=== PATIENT | female | born 2000 | race Caucasian/White ===

== ENCOUNTER 2025-05-02 11:20 | Outpatient (AMB) | payer OTHER, SELFPAY ==
--- NOTE | 2025-05-02 11:20 | MHC.OFFVIS ---
Vital Signs 05/02/25 11:27 BP 130/88 Blood Pressure Location Lt brachial Position Sitting Respiration 16 Pulse 98 Pulse Source Pulse Oximeter Pulse Oximetry (%) 98 Oxygen Delivery Method Room Air Intake Visit Reasons: Migraine Allergies No Known Allergies Allergy (Verified 04/28/25 09:12) HPI Comments Details: Morelia is a 24-year-old female patient with a past medical history of anxiety, depression, insomnia who is here today for headaches/migraine evaluation. She was previously followed at [facility] last seen in October of 2023 by Jodi DAVE. According to [facility] documentation, she was having frequent headaches up to 2-3 times per week many of which were accompanied by migrainous features including photophobia, phonophobia, nausea, and rarely vomiting. With more severe headaches could have some dizziness. It is noted that in the past she has tried amitriptyline without benefit and topiramate without. At the time of her last visit with [facility] neurology, she was continued on sumatriptan 50 mg as needed for acute therapy and recommended is trial of indomethacin. She was also recommended a retrial of topiramate with goal dosing of 50 mg twice daily. Referral notes for today's appointment mentioned that she has been having some ?fainting episodes that she like to discuss. Morelia tells me today that her migraines began in 3rd grade. She had an MRI completed at that time. She had been on amitriptyline as a child and it started to wear off at later in life. She has also used sumatriptan with some benefit but it causes a sensatino of anxiety. More recently she has been having more frequent and longer lasting migraines. She is currently experiencing migraines about 5 days per week lasting the while day. Her pain is generally back of neck radiating to top of head on both side. She has dizziness, light sensitivity, nausea, and fatigue. Occasionally she can have vomiting. Her pain is like a punching pain and can be a stabbing sensation. She has no vision changes before her headacehs but has some spots in her vision during the migraines. She has more recently been experiencing some nausea, diaphoresis, and tinnitus leading up to a brief loc. This often happens during a very bad episode but will happen before the onset of the actual headache. She denies a unilateral/focal weakness but often will feel weak all over. Headache characteristics: Time of onset:3rd grade Location:back of neck anf temporal Radiation:Radiating to the frontal areas Positional component:No Character:Punching or stabbing Severity:Can cause syncope Duration:Nearly a full day Frequency:5 days per week Acute aggravating factors:Lights and stress Acute relieving factors:Rest and ibuprofen Associated symptoms:Light sensitivity, sound sensitivity, dizziness, and loc episodes Aura:LOC episodes can sometimes preceed a migraine Headache triggers:Unknown Relation to menses: Using condoms for prevention. Not clearly following a menstrual pattern. Other related background information: Sleep:Can be scattered with frequent nightly awakenings. 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 Does note some clenching History of head injury: Concussion at age 10. No LOC Family planning considerations: Does have plans to get in about 1 year. Past medication trials: Amitriptyline- No longer effective Propranolol- Caused dizziness Topiramate- Tried in the past bit stopped Emgality- Helped but has severe needle anxiety Prior workup: MRI of the cervical spine without contrast 11/20/2022: The cervical spinal cord is normal in caliber and signal. No focal disc herniation. No central canal or foraminal stenosis. [facility] Medical History (Updated 05/02/25 @ 12:18 by Lakeshia Wilcox CNP) Somnolence RLS (restless legs syndrome) Migraine Review of Systems Const All systems reviewed & are unremarkable except as noted in HPI and below Physical Exam Vital Signs: Last Vital Signs Pulse 98 05/02/25 11:27 Resp 16 05/02/25 11:27 BP 130/88 05/02/25 11:27 Pulse Ox 98 05/02/25 11:27 Oxygen Delivery Method Room Air 05/02/25 11:27 Const General: cooperative, healthy appearing, comfortable and no acute distress Nutritional Appearance: well nourished Orientation/consciousness: patient oriented x3 Limitations: no limitations HEENT Head: Yes normal to inspection and Yes normocephalic Eyes General: appearance normal, both eyes and all related structures Visual Aquino: normal visual aquino by confrontation Alignment and Position: alignment normal Periorbital: periorbital findings normal Direct Ophthalmoscopy: normal light reflex, no papilledema and fundi normal bilaterally Neck Neck: Yes normal visual inspection and Yes full ROM General: Yes no CVA tenderness Back/Spine/Pelvis Back: no CVA tenderness Cervical Spine: normal cervical lordosis Thoracic/Lumbar Spine: thoracic and lumbar spine normal to inspection Neuro General: patient oriented x3 Cranial nerves: Yes CN's II-XII intact bilaterally Cognition (Neuro): normal cognition Gait exam (Neuro): Normal gait present Motor exam (neuro): 5/5 motor strength present throughout and no tremor noted Pupils: Normal pupillary reactivity/response: bilateral Psych Appearance: grossly normal Mental Status: mental status grossly normal Speech and movement: Normal speech and movement present and Clear speech present Affect: normal affect Attitude: cooperative Thought process: Normal thought process present Thought content: Normal thought content present Insight: Good insight present (Psych) Judgement: Good judgement present (Psych) Assessment & Plan Assessment & Plan (1) Worsening headaches: Code(s): R51.9 - Headache, unspecified Category: Medical (2) Loss of consciousness: Code(s): R40.20 - Unspecified coma Category: Medical (3) Chronic migraine without aura without status migrainosus, not intractable: Code(s): G43.709 - Chronic migraine without aura, not intractable, without status migrainosus Category: Medical Plan Morelia is a 24-year-old female patient with a past medical history of anxiety, depression, insomnia who is here today for headaches/migraine evaluation. Migraines have for many years with negative workups in the past. For the course of the last year however she has had some syncope during her migraines which start with a sensation of lightheadedness and diaphoresis dose after which she will lose consciousness for a brief few sec. She has not experienced any seizure-like activity but has not had any EEG testing in the past. I think given the change in her migraines it would be reasonable to both obtain an EEG and an MRI of the brain. We discussed some options for migraine prevention today. She would like to 1st try some nutraceuticals options and if this is not adequate, we discussed next steps which would likely include a GEPANT given her prior medication trials and needle anxiety. We specifically discussed Qulipta as one of these options. -MRI brain wo contrast -EEG -trial of magnesium and riboflaven -sumatriptan dc -trial of naratriptan for acute therapy -next steps include a trial of Qulipta 60 mg daily for migraine prevention Orders: Orders EEG Routine Today R40.20 - Unspecified coma, R51.9 - Headache, unspecified MR head/brain wo con Today R40.20 - Unspecified coma, R51.9 - Headache, unspecified Coding Level of Care Code New Pt Level 4 (33481) Diagnoses Worsening headaches R51.9 Loss of consciousness R40.20 Chronic migraine without aura without status migrainosus, not intractable G43.460
[2025-05-02 11:27] VITALS: BP 130/88; PULSE 98; RESP 16; O2SAT 98
--- OUTSIDE RECORDS SUMMARY | 2025-05-02 13:47 | XMS_ITS | Clinical Summary ---
Author Organization [facility] Address [address] [place] [address] Phone Care Team Providers Care Gear Lapper Name Role Phone Unavailable Primary Care Provider Unavailabl e Allergies No known active allergies Medications MONO-LINYAH 0.25-35 MG-MCG per tabletIndications: Encounter for surveillance of contraceptives, unspecified contraceptive take 1 tablet by mouth once daily 84 tablet 4 8 Active norgestimate-ethin yl estradiol (SPRINTEC 28) 0.25-35 MG-MCG per tablet Take by mouth. 6 Active Immunizations Immunization Administration Dates Next Due DTaP 12/28/2003, 0,06/07/1999, 999,01/25/1999 HPV, Quadrivalent 12/25/2010,08/16/2010,05/01/20 10 Hep A, ped/adol 09/15/2017 Hep B, ped/adol 08/29/1999,01/25/1999,1998 Hib (PRP-T) 02/26/2000, 9,04/03/1999, 999 IPV 12/28/2003, 0,04/03/1999, 999 Influenza 06/29/2007,05/28/2007 Influenza, injectable, quadrivalent 06/22/2014,1 ,05/01/2010 MMR 11/28/2002,11/26/1999 Meningococcal Conj (Menactra) MCV4P 07/24/2015,1 PPD Test 03/11/2018 Pneumococcal Conjugate 04/15/2000,02/26/2000 Tdap 05/01/2010 Varicella 02/09/2008,11/26/1999 Family History Relation Name Status Comments Father Alive hyperlipidemia diagnosed with Hypercholesteremia Maternal Grandfather cancer, hyperthyroid diagnosed with MALIGNANT NEOPLASM NOS Maternal Grandmother grand m al seizure/ cardiac arrest diagnosed with HEART DISEASE NOS Mother 05/2016, a lcoholic diagnosed with Hypertension Paternal Grandmother Alive hyperte nsion, BACK PROBLEMS diagnosed with Hypertension Social History Tobacco Use Types Packs/Day Years Used Date Smoking Tobacco: Never Assessed Comments Unknown Sex and Gender Information Value Date Recorded Sex Assigned at Not on file Legal Sex Female 6:08 PM EDT Gender Identity Not on file Sexual Orientation Not on file Last Filed Vital Signs Vital Sign Reading Time Taken Comments Blood Pressure 102/64 04/09/2018 9:59 AM EDT Pulse - - Temperature 36.6 C (97.9 F) 04/09/2018 9:59 AM EDT Respiratory Rate - - Oxygen Saturation - - Inhaled Oxygen Concentration - - Weight 55.9 kg (123 lb 4 oz) 04/09/2018 9:59 AM EDT Height 166.4 cm (5' 5.5 ) 04/09/2018 9:59 AM EDT Body Mass Index 20.2 04/09/2018 9:59 AM EDT Plan of Treatment Health Maintenance Due Date Last Done Comments Hepatitis A Vaccines (2 of 2 - 2-dose series) 03/15/2018 09/15/2017 DTaP,Tdap,and Td Vaccines (7 - Td or Tdap) 05/01/2020 05/01/2010, 12/28/2003, 02/26/2000, Additional history exists Influenza Vaccines (#1) 2025 06/22/20 14, 05/10/2012, 05/01/2010, Additional history exists COVID-19 Vaccine ( season) 2025 Hepatitis B Vaccines Completed 08/29/1999, 01/25/1999, 1998 HIB Vaccines Completed 02/26/2000, 05/20, 04/03/1999, Additional history exists Pneumococcal Vaccine Aged Out 04/15/2000, 02/26/20 00 No longer eligible based on patient's age to complete this topic MMR Vaccines Completed 11/28/2002, 11/26/1999 IPV Vaccines Completed 12/28/2003, 050 03/2000, 04/03/1999, Additional history exists Varicella Vaccines Completed 02/09/2008, 11/26/1999 HPV Vaccines Completed 12/25/2010, 07/21, 05/01/2010 Meningococcal Vaccine Completed 07/24/2015, 010 Men B Vaccine Aged Out No longer elig ible based on patient's age to complete this topic Procedures * Due to [place] Modulus law, this organization might not be sharing sensitive test results. Procedure Name Priority Date/Time Associated Diagnosis Comments CHLAMYDIA AND GONORRHEA, AMPLIFIED Routine 10/28/2017 12:00 AM EDT from Last 3 Months or Most Recently Relevant to Health Maintenance Results * Due to [place] Mod[employer] law, this organization might not be sharing sensitive test results. * Chlamydia and Gonorrhoea, Amplified (10/28/2017 12:00 AM EDT) URINE GC AMP PROBE NEGATIVE (NEG) C ONVERTED LABS Comment: No Neisseria Gonorrhoeae RNA detected in this patient's sample (REFERENCE RANGE/NORMAL VALUE: NOT DETECTED) NOTE: This test uses machinist instructor-mediated amplification method to detect rRNA from N.Gonorrhoeae. A negative result does not preclude infection. In the case of a negative urine result, testing of an endocervical(female) or urethral (male) specimen is recommended if there is high clinical suspicion of infection. Due to very high sensitivity of Nucleic Acid Amplification Test, false positive results may occur. Therefore, specimen handling is extremely important. In patients in whom the disease is unlikely, additional sample for testing should be considered after an initial positive result. The performance characteristics of this test have not been evaluated in children. The Aptima Combo2 assay is not intended for the evaluation of suspected sexual abuse or for other medico-legal indications. The ordering provider should assess if the patient had consensual sex without risk of sexual abuse. Consult the [facility] if needed. Contact phone number . Therapeutic failure or success cannot be determined with the Aptima Combo2 assay since nucleic acid may persist following appropriate antimicrobial therapy. The Centers for Disease Control and Prevention (CDC) recommends confirmatory retesting using culture or a different nucleic acid amplification test when positive results occur, if indicated. URINE CHLAMYDIA AMP PROBE NEGATIVE (NEG) CONVERTED LABS Comment: No Chlamydia Trachomatis RNA detected in this patient's sample (REFERENCE RANGE/NORMAL VALUE: NOT DETECTED) Note: This test uses machinist instructor- mediated amplification method to detect rRNA from C. Trachomatis 10/28/2017 Narrative CONVERTED LABS - 10/28/2017 12:00 AM EDT Screening Negative Joie Dent 10/27/2017 04:32:04 PM > sent to [facility] Erendira Skaggs 10/27/2017 04:33:11 PM > see tel encounter RayAngela J 10/28/2017 02:32:33 PM > Erendira Skaggs 10/29/2017 07:40:12 AM > Erendira Skaggs MD LAB MICROBIOLOGY - GENERAL ORDER KRISTIAN Final Result CONVERTED LABS from Last 3 Months or Most Recently Relevant to Health Maintenance Insurance [facility]
--- OUTSIDE RECORDS SUMMARY | 2025-05-02 13:47 | XMS_ITS | Encounter Summary ---
Author Organization [facility] Address [address] [place] [address] Phone Care Team Providers Care Crab Butcher Name Role Phone Aisha Hartman MD Primary Care Provider [phone] Encounter Details Date Type Department Care Team (Late st Contact Info) Description 12/06/2017 [facility]version [facility]counter [facility] [address] [address] Social History Tobacco Use Types Packs/Day Years Used Date Smoking Tobacco: Never Assessed Comments Unknown Sex and Gender Information Value Date Recorded Sex Assigned at Not on file Legal Sex Female 6:08 PM EDT Gender Identity Not on file Sexual Orientation Not on file documented as of this encounter Plan of Treatment Not on file documented as of this encounter Visit Diagnoses Not on filedocumented in this encounter Care Teams Crab Butcher Relationship Specialty Start Date End Date Aisha Hartamn MD [address] [place] [address] PCP - General 11/25/17 04/14/24 documented as of this encounter
--- OUTSIDE RECORDS SUMMARY | 2025-05-02 13:47 | XMS_ITS | Clinical Summary ---
Author Organization [facility] Address [address] [place] [address] Care Team Providers Care Biomedical Equipment Support Specialist Name Role Phone Perez Lema DO Primary Care Provider [phone] Medical History Medical History Date Comments Fainting DX:Fainting IBS (irritable bowel syndrome) D X:IBS (irritable bowel syndrome) Loss of consciousness (CMS/H CC V24, CMS/HCC V28) DX:Loss of consciousness (HC C) Headache DX:Headache Social History Tobacco Use Types Packs/Day Years Used Date Smoking Tobacco: Never Smokeless Tobacco: Former Alcohol Use Standard Drinks/Week Comments Yes 0 (1 standard drink = 0.6 oz pur e alcohol) Comments Unknown Sex and Gender Information Value Date Recorded Sex Assigned at Not on file Legal Sex Female 11:01 AM EST Gender Identity Not on file Sexual Orientation Not on file Obstetrics History Last Filed Vital Signs Vital Sign Reading Time Taken Comments Blood Pressure 120/80 07/28/2023 3:14 PM EST Sitting R Arm Pulse 70 07/28/2023 3:14 PM EST Temperature - - Respiratory Rate - - Oxygen Saturation - - Inhaled Oxygen Concentration - - Weight 54.7 kg (120 lb 8 oz) 07/28/2023 3:14 PM EST Height 170.2 cm (5' 7 ) 07/28/2023 3:14 PM EST Body Mass Index 18.87 07/28/2023 3:14 PM EST Plan of Treatment Health Maintenance Due Date Last Done Comments HPV Vaccines (1 - 3-dose series) 2013 DTaP,Tdap,and Td Vaccines (1 - Tdap) 2017 Hepatitis B Vaccines (1 of 3 - 19+ 3-dose series) 2017 Cervical Cancer Screening: P ap Smear 11/25/2019 HIV Screening 06/17/2022 Hepatitis C Screening 06/17/2022 Social Influencers of Health Screening 06/17/2022 Depression Screening 07/20/2024 COVID-19 Vaccine (1 - 2023-2 5 season) 2025 Influenza Vaccine (#1) 2025 RSV Immunization Adult Patie nts (1 - 1-dose 75+ series) 2073 HIB Vaccines Aged Out No longer eligi ble based on patient's age to complete this topic Hepatitis A Vaccines Aged Out No long er eligible based on patient's age to complete this topic IPV Vaccines Aged Out No longer eligi ble based on patient's age to complete this topic MMR Vaccines Aged Out No longer eligi ble based on patient's age to complete this topic Meningococcal ACWY Vaccine Aged Out N o longer eligible based on patient's age to complete this topic Meningococcal B Vaccine Aged Out No l onger eligible based on patient's age to complete this topic Pneumococcal Vaccine: Pediat rics (0 to 5 Years) and At-Risk Patients (6 to 49 Years) Aged Out No longer eligible b ased on patient's age to complete this topic RSV Immunization Patients Un merle 20 months Aged Out No longer eligible b ased on patient's age to complete this topic Varicella Vaccines Aged Out No longer eligible based on patient's age to complete this topic Care Teams Biomedical Equipment Support Specialist Relationship Specialty Start Date End Date Perez Lema DO PCP - General Internal Medicine 06/18/21
== END 2025-05-02 12:24 | disposition home or self-care (01) ==
LOC: HO.HSM 11:20
PROVIDERS: PCP Internal Medicine; Visit Provider Nurse Practitioner
DX: R51.9 Headache, unspecified (principal); R40.20 Unspecified coma; G43.709 Chronic migraine without aura, not intractable, without status migrainosus
CPT/HCPCS: 99204

== ENCOUNTER 2025-05-22 10:26 | Outpatient (REF) | payer OTHER, SELFPAY ==
--- NOTE | 2025-05-22 12:09 | EEG_ITS ---
Reason for Exam: Loss of consciousness History: anxiety, depression, insomnia, migraine, Patient report episodes of nausea, diaphoresis, and tinnitus leading up to a brief loss of consciousness. Last episode was a month ago. Last meal was this morning at 8:30 am. Medication: no list available Technical description Photic stimulation: completed Hyperventilation:?performed - good effort Behavioral state: pleasant State of Consciousness: awake and sleep Skull defect: none Sedation: none Handedness: right Duration of study:?33 min 27 sec Description: This is a 16 channel EEG with an EKG lead. Patient is reported awake and asleep during the tracing. Background EEG rhythm during wakefulness is about 10 hertz 5-100 microvolt posteriorly and lower amplitude fast anteriorly. Intermittently, sometime right and sometime left hemispheric sharply controlled theta range discharges, at times with high amplitude, were noted. No definite spike was seen. Photic stimulation did not produce any significant driving. Hyperventilation was unremarkable. Patient transitioned into light sleep. Cardiac lead did not reveal any significant abnormality. Impression: Abnormal EEG suggestive of bilateral probably temporal in origin abnormalities that suggested tendency for seizure disorder. For better definition, 48 hour ambulatory EEG is recommended. MTDD
--- OUTSIDE RECORDS SUMMARY | 2025-05-22 12:31 | XMS_ITS | Clinical Summary ---
Author Organization [facility] Address [address] [place] [address] Care Team Providers Care Vascular Radiologist Name Role Phone Perez Lema DO Primary Care Provider Medical History Medical History Date Comments Fainting [...] age to complete this topic Care Teams Vascular Radiologist Relationship Specialty Start Date End Date Perez Lema DO PCP - General Internal Medicine 06/18/21
--- OUTSIDE RECORDS SUMMARY | 2025-05-22 12:31 | XMS_ITS | Encounter Summary ---
Author Organization [facility] Address [address] [place] [address] Phone Care Team Providers Care Advanced Practice Nurse Psychotherapist Name Role Phone Aisha Hartman MD Primary Care Provider [phone] Encounter Details Date Type Department Care Team (Late st Contact Info) Description 12/06/2017 Conversion [facility]counter [facility] [address] [address] Social History Tobacco Use Types Packs/Day Years [...] on filedocumented in this encounter Care Teams Advanced Practice Nurse Psychotherapist Relationship Specialty Start Date End Date Aisha Hartman MD [address] [place] [address] PCP - General 11/25/17 04/14/24 documented as of this encounter
--- OUTSIDE RECORDS SUMMARY | 2025-05-22 12:31 | XMS_ITS | Data Portability ---
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 Plan of Treatment Reminders Order Date Submit Date Provider Last Modified By Organization Details Last Modified Time Details Appointments ANNUAL EXAM 2025 03:20P M Sherly Lind MD Not available Not available Not available Lab beta-HCG, qualitati ve, serum or plasma 2024 025 MIL[facility]ROS [facility], [address] [place] [address] [address], [place], [address], 03/19/2025 08:06:32 prolactin , serum 2024 025 MILAGROS [facility], [address] [place] [address] [address], [place], [address], 03/19/2025 08:06:31 FSH (follicle -stimulat ing hormone), serum 2024 025 MILAGROS [facility], [address] [place] [address] [address], [place], [address], 03/19/2025 08:06:31 testoster one, free + total, serum 2024 025 [email or web address] [facility], [address] [place] [address] [address], [place], [address], 03/21/2025 07:14:29 TSH + free T4, serum 2024 025 MILAGROS [facility], [address], [place], [address], 03/19/2025 08:06:30 estradiol , serum 2024 025 [facility], [address], [place], [address], 03/19/2025 08:06:31 test, urine 2024 025 [email or web address] 1 In-Office Order, Internal Use Only DO Not Attach Compendium DO Not Attach Compendium, Do Not Delete/merge, [id number] 03/13/2025 14:53:59 test, urine 2024 025 [email or web address] 1 In-Office Order, Internal Use Only DO Not Attach Compendium DO Not Attach Compendium, Do Not Delete/merge, [id number] 11/14/2024 15:26:28 beta-HCG, qualitati ve, serum or plasma 2024 025 [facility], [address] [facility], [place], [address], 02/06/2025 08:45:33 TSH + free T4, serum 2024 025 [facility], [address], [place], [address], 02/06/2025 08:45:33 cytology report, thin prep, smear or scraping, cervical or vaginal 2024 025 [facility] (Centralized Electronic Ordering - All Locations), Patient Can Go To The Location Of Their Choice, [address] 10/15/2024 00:16:23 pap, LB 2023 024 [facility] ([facility] - [facility]ations), Patient Can Go To The Location Of Their Choice, [id number] 08/21/2023 11:22:35 Referral None recorded. Procedures None recorded. Surgeries None recorded. Imaging None recorded. Medication Orders norethind dee (contrace ptive) 0.35 mg tablet 2024 025 [facility]/Pharmacy #[id number], [address] [place], [address], 03/13/2025 14:34:32 norgestim ate 0.25 mg-ethiny l estradiol 0.035 mg tablet 2024 025 [facility]/Pharmacy #2025, [address] [place], [address], 03/13/2025 14:34:27 Patient TargetsNo targets recorded. Patient Instructions Encounter Date Encounter Id Patient Instructions Last Modified By Organization Details Last Modified Time 08/18/2023 [id number] abnormal Pap shakira t: care instructions savita Not available 08/18/2023 15:03:24 She is here for repeat pap after pap with ASCUS without HR HPV. Pap taken. If ASCUS then colpo, if negative then return for next annual as scheduled. savita Not available 08/18/2023 15:03:52 10/13/2024 [id number] learning about healthy weight savita Not available 10/13/2024 15:37:45 She is here for annual, doing well on the OCP. She just adopted a red Labrador dog! Note from 2022: She is her for annual, doing well on OCP. Believes she may have a vaginal yeast infection. She began having vaginal pruritus 2 weeks ago, and in the past few days it has worsened. The last time she was treated for vaginal yeast was several months ago. She appears to be doing well. Monthly self breast exam was taught, and stressed, and is advised to call if she discovers any new mass in the breast. We reviewed the interaction of the OCP with antibiotics. We discussed the need to use a condom during antibiotic use and also for a minimum of three weeks following the use of antibiotics. We discused interactions with some herbal and OTC meds, such as [facility] Santhosh's Possible side effects, and the stated risk of one in 10,000 to develop a blood clot/ DVT/PE were also discussed. Safe sex was stressed. All questions answered, rx to be called in to pharmacy. Not available 10/13/2024 15:38:20 11/14/2024 [id number] She is here for abnormal uterine bleeding. She has her normal menses beginning 10/18/24, at the correct time. She has not missed any pills. Then she had a 7 day episode of bleeding beginning on the that was like a menses, stopped, then just restarted again today which would have been the proper timing on her pill pack. Se was taking a medication that she stopped on 10/14/24, ariprazole. All menses prior to this were normal. We discussed that stopping the medication may have been the cause, it should reset if so. Will check serum HCG and thyroid, the urine hcg today is negative. If labs are normal range then await the next month of bleeding. If abnormal bleeding recurs then call us and we will order a pelvic sonogram. All questions answered. Face to face discussion, chart review and coordination of care: 25 minutes Not available 11/14/2024 15:23:47 12/08/2024 [id number] She started on lamictal in July and is now having some irregular vaginal bleeding on her combination OCP. Her psychiatrist advised her to take the pill at a different time than the OCP but she is concerned it may be less effective for control because her pharmacist told her that. We discussed the posible interactions nad recommended she switch to a progestin-only form of control. We discussed all the options for this and she elects to start the progestin-only pill with her next menses. We discussed the first day start process for the OCP, that the pill will not be effective for the first month of use, and the interaction with antibiotics. We discussed the need to use a condom during antibiotic use and also for a minimum of three weeks following the use of antibiotics. We discussed interactions with some herbal and OTC meds, such as Saint Santhosh's Wort. Possible side effects, and the stated risk of one in 10,000 to develop a blood clot/ DVT/PE were also discussed. All questions answered, rx to be called in to pharmacy. She tried to give us a urine specimen but could not even after drinking a bottle of water. She has blood work already ordered to check hormones including , she will go for that. Face to face discussion, chart review and coordination of care: 25 minutes Not available 12/08/2024 14:25:14 03/13/2025 [id number] secondary amenorrhea: care instructions Not available 03/13/2025 14:43:33 She is here for a 3 month history of amenorrhea. She has a 30 pound unintended weight loss since starting adderall in 09/13, she wonders if this is related. She stopped the OCP in 01/11, had been on progestin only pill, as she is considering fertility. She talks to her psychiatrist in 3 days from now about this. Urine hcg negative. Check serum hcg, prolactin, thyroid, estradiol, fsh, testosterone. she is advised that rapid weight loss can cause temporary amenorrhea as well. All questions answered. Call for lab results. Should change any meds that are contraindicated in before getting . Face to face discussion, chart review and coordination of care: 25 minutes [email or web address] Not available 03/14/2025 07:28:40 Reason for Referral None Reported. 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 Satis facto ry for evalu ation . Endoc ervic al/tr ansfo rmati on zone prese nt. Clini enrcio Histo ry: Date of Last Menst rual Perio d: not avail able Menst rual Histo ry: not avail able Contr acept jessica Histo ry: not avail able Ancil sonja Testi ng: HPV (ASCU S) Case image d by the ThinP rep Imagi ng Syste m with юлия lopez michael gallo or paul jules Perfo rmed at [facility] ate Refer ence [facility] Cyt[facility], [address] [place] Clini enrico Histo ry (othe r): R87.6 10, DIAGN OSTIC FOLLO W UP, 05/04 ASCUS HPV Phone #: [phone], On-Ca ll Patho logis t: [id number] Not Available [facility] (Centralized Electronic Ordering - All Locations) Patient Can Go To The Location Of Their Choice, [address] 08/21/2023 11:22:34 10/14/19 25 10/14/2024 IGP, CTNG, RFX APTIM A HPV ASCU diagnosis: João LOPEZ FOR INTRA EPITH ELIAL MITALI Valdez OR DARYA ALCARAZ . Not Available [facility] ([facility]) [address] [place], [address], 10/15/2024 00:16:23 10/14/19 25 10/14/2024 IGP, CTNG, RFX APTIM A HPV ASCU specimen adequacy: João corbin Satis facto ry for evalu ation . Endoc ervic al and/o r squam ous metap lasti c cells (endo cervi enrico compo nent) are prese nt. Not Available [facility] ([facility]) [address] [place], [address], 10/15/2024 00:16:23 10/14/19 25 10/14/2024 IGP, CTNG, RFX APTIM A HPV ASCU clinician provided ICD10: João corbin Z01.4 19 Not Available [facility] ([facility]) [address] [place], [address], 10/15/2024 00:16:23 10/14/19 25 10/14/2024 IGP, CTNG, RFX APTIM A HPV ASCU performed by: João Gloria , Cytot cristian corbin (ASCP ) Not Available [facility] ([facility]) [address] [place], [address], 10/15/2024 00:16:23 10/14/1910/14/2024 IGP, CTNG, RFX APTIM A HPV ASCU . . Not Available [facility] ([facility]) [address] [facility], [place], [address], 10/15/2024 00:16:23 10/14/19 25 10/14/2024 IGP, CTNG, RFX APTIM A HPV ASCU note: Commen t The Pap smear is a scree peña test desig ankush to aid in the detec tion of heri ligna nt and malig nant condi tions of the uteri ne cervi x. It is not a diagn ostic proce dure and shoul d not be used as the sole means of detec ting cervi enrico cance r. Both false -posi tive and false -nega tive repor ts do occur . Not Available [facility] ([facility]) [address] [facility], [place], [address], 10/15/2024 00:16:23 10/14/1910/14/2024 IGP, CTNG, RFX APTIM A HPV ASCU test methodology: Commen t This liqui d based ThinP rep(R ) pap test was scree ankush with the use of an image guide d syste m. Not Available [facility] ([facility]) [address] [facility], [place], [address], 10/15/2024 00:16:23 10/14/1910/14/2024 IGP, CTNG, RFX APTIM A HPV ASCU . Commen t The HPV DNA refle x crite vaughn were not met with this speci men resul t there fore, no HPV testi ng was perfo rmed. Not Available [facility] ([facility]) [address] [place], [address], 10/15/2024 00:16:23 03/27/20 25 10/14/2024 IGP, CTNG, RFX APTIM A HPV ASCU chlamydia, nuc. acid amp Negati ve negati ve Not Available [facility] ([facility]) [address] [place], [address], 10/15/2024 00:16:23 10/14/19 25 10/14/2024 IGP, CTNG, RFX APTIM A HPV ASCU gonococcus, nuc. acid amp Negati ve negati ve Not Available [facility] ([facility]) [address] [facility], [place], [address], 10/15/2024 00:16:23 11/15/19 25 11/14/2024 pregn js test, urine HCG negati ve Not Available In-Office Order Internal Use Only DO Not Attach Compendium DO Not Attach Compendium, Do Not Delete/merge, [id number] 11/14/2024 14:55:57 03/13/2003/13/2025 pregn js test, urine HCG negati ve Not Available In-Office Order Internal Use Only DO Not Attach Compendium DO Not Attach Compendium, Do Not Delete/merge, [id number] 03/13/2025 14:44:15 03/18/2003/19/2025 TSH+F REE T4 TSH 2.550 uIU/m L 0.450- 4.500 normal Not Available [facility] ([facility]) [address] [facility], [place], [address], 03/19/2025 08:06:30 03/18/2003/19/2025 TSH+F REE T4 T4,free(dire ct) 1.12 NG/dL 0.82-1 .77 normal Not Available [facility] ([facility]) [address] [place], [address], 03/19/2025 08:06:30 03/18/20 25 03/19/2025 FSH FSH 9.2 mIU/m L Adult Femal e Range Folli cular phase 3.5 - 12.5 Ovula tion phase 4.7 - 21.5 Lutea l phase 1.7 - 7.7 Postm enopa usal 25.8 - 134.8 Not Available [facility] ([facility]) [address] [place], [address], 03/19/2025 08:06:31 03/18/20 25 03/19/2025 PROLA CTIN prolactin 9.3 NG/mL 4.8-33 .4 normal Not Available [facility] ([facility]) [address] [place], [address], 03/19/2025 08:06:31 03/18/20 25 03/19/2025 ESTRA DIOL estradiol 57.6 pg/mL normal Adult Femal e Range Folli cular phase 12.5 - 166.0 Ovula tion phase 85.8 - 498.0 Lutea l phase 43.8 - 211.0 Postm enopa usal <6.0 - 54.7 Pregn js 1st trime ster 215.0 - >4300 .0 David ECLIA metho dolog y Not Available [facility] ([facility]) [address] [place], [address], 03/19/2025 08:06:31 03/18/20 25 03/19/2025 HCG QL W/REF MIKAELA TO HCG QN HCG,beta subunit,qual Negati ve mIU/m L negati ve <6 Not Available [facility] ([facility]) [address] [place], [address], 03/19/2025 08:06:32 03/18/20 25 03/21/2025 TESTO STERO NE, FREE+ TOTAL LC/MS free testosterone (direct) 0.4 pg/mL 0.0-4. 2 Not Available [facility] ([facility]) [address] [place], [address], 03/23/2025 16:06:24 03/18/20 25 03/23/2025 TESTO STERO NE, FREE+ TOTAL LC/MS testosterone , total, lc/MS 34.0 NG/dL 10.0-5 5.0 Not Available [facility] ([facility]) [address] [facility], [place], [address], 03/23/2025 16:06:24 Result Notes None recorded. Problems Name Problem SNOMED Code Status Onset Date Resolution Date Notes Provider Name and Address Organization Details Recorded Time Dyspareuni a [id number] Active 2017 Sherly Lind MD [address], [place], [address], [place] - [facility], 8 12:19:32 Lesion of vulva 971744472 Active 2017 Sherly Lind MD [address], [place], [address], [place] - [facility], 8 12:19:39 History of chlamydial infection 903786880 Active 201710/08/17 had positive chlamydia infection Sherly Lind MD [address], [place], [address], [place] - [facility], 8 12:20:02 Irritable bowel syndrome 19574060 Active 2021 [place] in [facility], 2 14:39:37 Syncope 416770072 Active 2022 [place] in [facility], 3 15:21:10 Problem Notes None recorded. Medical Equipment None Reported. Allergies No known drug allergies Medications Name Sig Start Date Stop Date Status Note LastModified by Organization Details LastModified Time glycopyrrol ate 1 mg tablet Take ONE TABLET BY MOUTH TWICE A DAY 05/04 completed Not Available Not Available Not Available fluoxetine 40 mg capsule TAKE 1 CAPSULE BY MOUTH DAILY WITH 20 MG FOR TOTAL 60 MG PER DAY 10/13 completed Not Available Not Available Not Available amoxicillin 500 mg capsule take 1 tablet by mouth three times a day for 7 days 08/05 completed Not Available Not Available Not Available buspirone 5 mg tablet TAKE 1 TABLET BY MOUTH TWICE A DAY DIRECTED 10/13 completed Not Available Not Available Not Available lamotrigine 150 mg tablet TAKE 1 TABLET BY MOUTH TWICE A DAY DIRECTED active Not Available Not Available No t Available terconazole 0.4 % vaginal cream INSERT 1 APPLICATO RFUL VAGINALLY EVERY DAY FOR 7 DAYS 10/13 completed Not Available Not Available Not Available norgestimat e 0.25 mg-ethinyl estradiol 0.035 mg tablet TAKE 1 TABLET BY MOUTH EVERY DAY 03/13 completed Not Available Not Available Not Available venlafaxine ER 37.5 mg capsule,ext ended release 24 hr 08/05 completed Not Available Not Available Not Available clonidine HCl 0.1 mg tablet TAKE 1 TABLET BY MOUTH AT BEDTIME 03/20 completed Not Available Not Available Not Available clindamycin HCl 300 mg capsule 08/05 completed Not Available Not Available Not Available trazodone 50 mg tablet TAKE 1/2 TABLET BY MOUTH AT BEDTIME 05/04 completed Not Available Not Available Not Available tizanidine 4 mg tablet TAKE 1 TABLET BY MOUTH DAILY AT BEDTIME,I NSTR:TAKE 10-12 HOURS BEFORE PLANNING TO WAKE UP. 05/04 completed Not Available Not Available Not Available fluconazole 150 mg tablet TAKE 1 TABLET BY MOUTH NOW. REPEAT IN 7 DAYS 03/20 completed Not Available Not Available Not Available valacyclovi r 1 gram tablet Take 1 tablet every 12 hours by oral route for 10 days. 08/05 completed Not Available Not Available Not Available fluconazole 200 mg tablet 04/25 completed Not Available Not Available Not Available ondansetron HCl 4 mg tablet TAKE 1 TABLET BY MOUTH EVERY 8 HOURS 05/04 completed Not Available Not Available Not Available clonidine HCl 0.3 mg tablet 08/05 completed Not Available Not Available Not Available sumatriptan 50 mg tablet PLEASE SEE ATTACHED FOR DETAILED DIRECTION S active Not Available Not Available No t Available topiramate 25 mg tablet 11/26 completed Not Available Not Available Not Available acetaminoph en 300 mg-codeine 30 mg tablet TK 1 TO 2 TS PO Q 6 TO 8 H 03/09 completed Not Available Not Available Not Available sulfamethox azole 800 mg-trimetho prim 160 mg tablet TK 1 T PO Q 12 H FOR 10 DAYS 07/16 completed Not Available Not Available Not Available omeprazole 40 mg capsule,del ayed release TAKE 1 CAPSULE BY MOUTH EVERY DAY active Not Available Not Available No t Available Preparation H (phenylephr ine,witch rossy) 0.25 %-50 % topical gel apply rectally four times a day for 7 days 11/26 completed Not Available Not Available Not Available bupropion HCl SR 100 mg tablet,12 hr sustained-r elease TK 1 T PO QD 01/29 completed Not Available Not Available Not Available amoxicillin 500 mg tablet TK 1 T PO Q 8 H UNTIL FINISHED 08/05 completed Not Available Not Available Not Available lamotrigine 25 mg tablet TAKE THREE TABLET TWICE DAILY DIRECTED active Not Available Not Available No t Available magnesium gluconate 12.5 mg magnesium (250 mg) tablet take 2 tablets (=500MG) by mouth once daily 11/26 completed Not Available Not Available Not Available cefadroxil 500 mg capsule 11/26 completed Not Available Not Available Not Available oxycodone-a cetaminophe n 5 mg-325 mg tablet take 1 tablet by mouth every 6 hours if needed for pain 08/05 completed Not Available Not Available Not Available bupropion HCl 100 mg tablet TAKE 1 TABLET BY MOUTH DAILY 03/20 completed Not Available Not Available Not Available doxycycline monohydrate 50 mg capsule Take ONE CAPSULE BY MOUTH TWICE A DAY 05/04 completed Not Available Not Available Not Available clonidine HCl 0.2 mg tablet 11/26 completed Not Available Not Available Not Available amitriptyli ne 25 mg tablet 08/05 completed Not Available Not Available Not Available lorazepam 0.5 mg tablet TAKE 1 TABLET BY MOUTH DAILY NEEDED FOR ANXIETY. MAY USE UP TO 10 TIMES PER MONTH active Not Available Not Available No t Available dextroamphe tamine-amph etamine ER 20 mg 24hr capsule,ext end release TAKE 1 CAPSULE EVERY DAY BY ORAL ROUTE IN THE MORNING FOR 30 DAYS, FOR ADHD. 12/08 completed Not Available Not Available Not Available amitriptyli ne 10 mg tablet TAKE 2 TABLETS BY MOUTH DAILY 05/04 completed Not Available Not Available Not Available phenazopyri dine 100 mg tablet TK 1 T PO TID FOR 3 DAYS PRN 07/16 completed Not Available Not Available Not Available doxycycline monohydrate 100 mg capsule TAKE 1 CAPSULE BY MOUTH EVERY DAY 05/04 completed Not Available Not Available Not Available paroxetine 20 mg tablet 08/05 completed Not Available Not Available Not Available trielizabeth macias acetonide 0.1 % topical ointment ARMIDA THIN LAYER EXT AA BID 04/25 completed Not Available Not Available Not Available buspirone 10 mg tablet TAKE 1 TABLET BY MOUTH THREE TIMES A DAY DIRECTED FOR 30 DAYS 10/13 completed Not Available Not Available Not Available fluoxetine 10 mg capsule TAKE 3 CAPSULES BY MOUTH EVERY DAY IN THE MORNING 05/04 completed Not Available Not Available Not Available betamethaso ne dipropionat e 0.05 % topical cream APPLY TO SKIN D TO BID PRN.USE 2 WEEKS ON THEN 1 WEEK OFF 07/16 completed Not Available Not Available Not Available omeprazole 20 mg capsule,del ayed release TAKE 1 CAPSULE BY MOUTH DAILY.. 03/20 completed Not Available Not Available Not Available dextroamphe tamine-amph etamine ER 10 mg 24hr capsule,ext end release TAKE 1 CAPSULE BY MOUTH EVERY DAY IN THE MORNING FOR 14 DAYS FOR ADHD active Not Available Not Available No t Available mirtazapine 15 mg tablet TK 1 T PO QHS 01/29 completed Not Available Not Available Not Available ibuprofen 600 mg tablet take 1 tablet by mouth every 6 to 8 hours if needed 08/05 completed Not Available Not Available Not Available polyethylen e glycol 3350 17 gram/dose oral powder take 17GM (DISSOLVE D IN WATER) by mouth once daily 01/29 completed Not Available Not Available Not Available levofloxaci n 500 mg tablet TK 1 T PO Q 24 H FOR 7 DAYS 01/29 completed Not Available Not Available Not Available methylpredn isolone 4 mg tablets in a dose pack take as directed 05/04 completed Not Available Not Available Not Available norethindro ne (contracept jessica) 0.35 mg tablet TAKE 1 TABLET BY MOUTH EVERY DAY FOR 84 DAYS 03/13 completed Not Available Not Available Not Available propranolol 20 mg tablet TAKE 1 TABLET BY MOUTH TWICE A DAY DIRECTED active Not Available Not Available No t Available ondansetron 4 mg disintegrat ing tablet DISSOLVE 1 TABLET BY MOUTH EVERY 6 HOURS 10/13 completed Not Available Not Available Not Available fluoxetine 20 mg capsule TAKE 1 CAPSULE BY MOUTH DAILY WITH 40 MG CAPS FOR TOTAL DAILY DOSE = 60MG 10/13 completed Not Available Not Available Not Available sertraline 50 mg tablet 11/26 completed Not Available Not Available Not Available lamotrigine 100 mg tablet TAKE 1 TABLET BY MOUTH TWICE A DAY DIRECTED active Not Available Not Available No t Available ipratropium bromide 21 mcg (0.03 %) nasal spray 1 SPRAY EACH NOSTRIL TWICE A DAY NEEDED FOR NASAL CONGESTIO N active Not Available Not Available No t Available dextroamphe tamine-amph etamine 5 mg tablet TAKE 1 TABLET BY MOUTH TWICE A DAY NEEDED FOR ADHD FOR 30 DAYS active Not Available Not Available No t Available naproxen 500 mg tablet TAKE 1 TABLET BY MOUTH TWICE A DAY NEEDED FOR ANALGESIA 10/13 completed Not Available Not Available Not Available bupropion HCl SR 200 mg tablet,12 hr sustained-r elease 01/29 completed Not Available Not Available Not Available azithromyci n 500 mg tablet TK 2 TS PO ONCE DAILY 09/18 completed Not Available Not Available Not Available escitalopra m 10 mg tablet 11/26 completed Not Available Not Available Not Available azelaic acid 15 % topical gel APPLY TO FACE EVERY MORNING active Not Available Not Available No t Available ciclopirox 1 % shampoo USE A SHAMPOO DAILY UNTIL CONDITION IMPROVES, THEN REDUCE TO 2-3X WEEKLY FOR MAINTENAN CE. active Not Available Not Available No t Available aripiprazol e 5 mg tablet TAKE 1 TABLET BY MOUTH EVERY DAY DIRECTED 11/14 completed Not Available Not Available Not Available bupropion HCl XL 300 mg 24 hr tablet, extended release TAKE 1 TABLET BY MOUTH EVERY DAY IN THE MORNING 03/13 completed Not Available Not Available Not Available bupropion HCl XL 150 mg 24 hr tablet, extended release TAKE 1 TABLET BY MOUTH EVERY DAY IN THE MORNING 03/13 completed Not Available Not Available Not Available escitalopra m 5 mg tablet 01/29 completed Not Available Not Available Not Available topiramate 50 mg tablet 08/05 completed Not Available Not Available Not Available nitrofurant oin monohydrate /macrocryst als 100 mg capsule TAKE 1 CAPSULE BY MOUTH EVERY 12 HOURS FOR 7 DAYS 03/20 completed Not Available Not Available Not Available chlorhexidi ne gluconate 0.12 % mouthwash Rinse with 1/2 ounce by mouth for 30 seconds then spit out. START IN 24 HOURS 08/05 completed Not Available Not Available Not Available aripiprazol e 2 mg tablet TAKE 1 TABLET BY MOUTH EVERY DAY IN THE MORNING 11/14 completed Not Available Not Available Not Available lisdexamfet amine 30 mg capsule TAKE 1 CAPSULE EVERY DAY BY MOUTH IN THE MORNING FOR 30 DAYS, FOR ADHD. active Not Available Not Available No t Available lisdexamfet amine 40 mg capsule TAKE 1 CAPSULE EVERY DAY BY ORAL ROUTE IN THE MORNING FOR 30 DAYS, FOR ADHD. active Not Available Not Available No t Available lamotrigine ER 100 mg tablet,exte nded release 24 hr TAKE 1 TABLET DAILY WITH 50 MG DOSE FOR TOTAL DAILY DOSE OF 150 MG ER active Not Available Not Available No t Available lamotrigine ER 50 mg tablet,exte nded release 24 hr TAKE 1 TABLET BY MOUTH DAILY WITH 100 MG DOSE FOR TOTAL 150 MG DAILY active Not Available Not Available No t Available lurasidone 20 mg tablet TAKE 1 TABLET BY MOUTH EVERY DAY AT DINNER FOR 30 DAYS active Not Available Not Available No t Available lidocaine 5 % topical ointment 08/05 completed Not Available Not Available Not Available Gynazole-1 2 % vaginal cream INSERT 1 APPLICATO RFUL BY VAGINALLY ROUTE FOR 1 DAY 04/25 completed Not Available Not Available Not Available Colace Clear 50 mg capsule 08/05 completed Not Available Not Available Not Available Readi-Cat 2 2 % (w/v) oral suspension 03/20 completed Not Available Not Available Not Available Plenvu 140 gram-9 gram-5.2 gram powder packs SPLIT DOSE TAKE 1/2 DOSE DAY BEFORE AND 1/2 DOSE DAY OF PROCEDURE (7HOURS BEFORE PROCEDURE ) 05/04 completed Not Available Not Available Not Available Emgality Pen 120 mg/mL subcutaneou s pen injector 240 MG SUBCUTANE OUS INJECTION ONCE,INST R:LOADING DOSE 05/04 completed Not Available Not Available Not Available Aklief 0.005 % topical cream Apply TO AFFECTED AREA(S) ONCE DAILY AT BEDTIME active Not Available Not Available No t Available Winlevi 1 % topical cream APPLY TO AFFECTED AREA(S) EVERY MORNING 10/13 completed Not Available Not Available Not Available Vitals Date Recorded Body height Body mass index (BMI) Body weight Body temperature Heart rate Systolic And Diastolic Provider Name and Address Organization Details Last Updated DateTime 4 165.1 cm 20.4 kg/m2 05635.1 4 g 97.3 [degF] 79 /min 134/82 mm[Hg] Laura Olvera in [facility], 4 14:50:55 Date Recorded Body height Body mass index (BMI) Body weight Heart rate Body temperature Systolic And Diastolic Provider Name and Address Organization Details Last Updated DateTime 5 167.64 cm 20.7 kg/m2 12830.5 4 g 114 /min 97.5 [degF] 126/76 mm[Hg] Laura Olvera in [facility], 5 15:15:09 Date Recorded Body height Body temperature Body mass index (BMI) Body weight Heart rate Systolic And Diastolic Provider Name and Address Organization Details Last Updated DateTime 5 167.64 cm 98.3 [degF] 19.9 kg/m2 66106.0 2 g 100 /min 122/75 mm[Hg] Larua Olvera in [facility], 5 14:53:14 Date Recorded Body height Body mass index (BMI) Body weight Heart rate Systolic And Diastolic Provider Name and Address Organization Details Last Updated DateTime 12/08/2024 167.64 cm 19.7 kg/m2 99329.99 g 129 /min 124/80 mm[Hg] Laura Olvera in [facility], 12/08/2024 14:00:15 Date Recorded Body height Body mass index (BMI) Body weight Provider Name and Address Organization Details Last Updated DateTime 03/13/2025 167.64 cm 17.8 kg/m2 48822.16 g Laura Olvera in [facility], 03/13/2025 14:33:24 Social History Question Answer Notes LastModified by Organization Details LastModified Time Tobacco Smoking Status Never Smoker AYLIN Arrington in [facility], 11/26/2017 11:23:15 How Many Years Have You Consumed Alcohol? 4 Information not available 08/18/2023 What Is Your Level Of Caffeine Consumption? Occasional Information not available 09/19/2019 In The 14 Days Before Symptom Onset, Have You Had Close Contact With A Laboratory-confi rmed COVID-19 While That Case Was Ill? No Information not available 03/20/2022 In The 14 Days Before Symptom Onset, Have You Had Close Contact With A Person Who Is Under Investigation For COVID-19 While That Person Was Ill? No Information not available 03/20/2022 Have You Been To An Area Known To Be High Risk For COVID-19? No Information not available 03/20/2022 What Type Of Diet Are You Following? REGULAR Information not available 11/26/2017 Which Illicit Or Recreational Drugs Have You Used? No Information not available 11/26/2017 Do You Reside In Or Have You Traveled To An Area Where Ebola Virus Transmission Is Active? No Information not available 11/26/2017 Education 4 Year College [employer]. Information not available 08/18/2023 What Is The Highest Grade Or Level Of School You Have Completed Or The Highest Degree You Have Received? [id number] Information not available 10/13/2024 Who Is Your Employer? [employer] Information not available 03/20/2022 How Many Days In The Past Year Have You Had A Heavy Drinking Consumption (4+ Female, 5+ Male)? 2 Information not available 10/13/2024 Are There Any Guns Present In Your Home? No Information not available 03/20/2022 High Number Of Sexual Partners No Information not available 11/26/2017 To Which Gender Do You Self-identify? Female Information not available 11/26/2017 Marital Status Single In Relationship Information not available 10/13/2024 What Was The Date Of Your Most Recent Tobacco Screening? 03/13/2025 Information not available 03/13/2025 What Is Your Relationship Status? Single Information not available 03/20/2022 Are You Sexually Active? Yes Information not available 11/26/2017 How Much Tobacco Do You Smoke? No Information not available 10/12/2018 General Stress Level High Information not available 11/26/2017 How Many Years Have You Smoked Tobacco? 0 Information not available 10/12/2018 Have You Recently (within The Last 12 Weeks, Or During A Current ) Traveled To Or Lived In A Zika-affected Area? No Information not available 11/26/2017 How Many Days In The Past Year Have You Consumed 4 Or More Drinks? 2 Information not available 10/13/2024 Sex: Female Functional Status Question Answer Note LastModified by Organizat ion Details LastModified Time Do you use any illicit or recreational drugs? No Information not available 05/04/2023 Do you or have you ever used any other forms of tobacco or nicotine? No Information not available 03/20/2022 What is your level of alcohol consumption? Occasional Information not available 07/16/2020 Do you or have you ever used smokeless tobacco? Never used smokeless tobacco Information not available 04/25/2019 Are you currently employed? Yes Information not available 03/20/2022 What is your occupation? [employer] Information not available 10/13/2024 Do you or have you ever used e-cigarettes or vape? Never used electronic cigarettes Information not available 04/25/2019 What is your exercise level? Moderate Information not available 11/26/2017 Mental Status Question Answer Note LastModified by Organization D etails LastModified Time Do you feel stressed (tense, restless, nervous, or anxious, or unable to sleep at night)? [id number] Information not available 03/20/2022 Family History Relationship Description Onset Age of this Age Resolved Age Notes LastModified by Organization Details LastModified Time Mother Substance abuse [email or web address] Not available 2017 11:23:02 Medical History Condition Response Anesthesia complications N High Blood Pressure N Candidate for MyRisk panel N Autoimmune Condition N Thyroid Problems N Kidney or Bladder Problems N GI Problems N Lung Disease N Depression Y Defects or Inherited Disease N History of Ovarian Cancer N Anemia N History of Breast Cancer N LISA exposure N BRCA testing in past N Osteopenia N Psychiatric Illness N Anxiety Disorder Y Diabetes N Arthritis N Headaches or Migraines Y Infertility N Asthma N History of Cancer N Endometriosis N Hepatitis N Heart Disease N Hypertension N Osteoporosis N Gynecological History Statement/Question Response Flow Light Date of LMP 12/15/2024 Frequency of Cycle (Q days) 28 Menses Monthly Y Duration of Flow (days) 5 Age at Menarche 12 Current Control Method BCPs Age at First Child 1 Obstetrics History GPAL:G 0 P 0 0 0 0 Immunizations Vaccine Type Date Status Note Provider Nam e and Address Organization Details Recorded Time SARS-COV-2 (COVID-19) vaccine, UNSPECIFIED 1 completed Not Available [facility] 08/18/2023 14:48:34 COVID-19, mRNA, LNP-S, PF, 30 mcg/0.3 mL dose 1 completed AYLIN Montana in [facility], 05/04/2023 15:20:25 COVID-19, mRNA, LNP-S, PF, 30 mcg/0.3 mL dose 1 completed AYLIN Montana in [facility], 05/04/2023 15:20:25 Hep A, ped/adol, 2 dose 8 completed AYLIN Montana in [facility], 05/04/2023 15:20:25 meningococcal MCV4P 6 completed AYLIN Montana in [facility], 05/04/2023 15:20:25 Past Encounters Encounter ID Performer Location Encounter Start Date Encounter Closed Date Diagnosis/Indication Diagnosis SNOMED-CT Code Diagnosis ICD10 Code Diagnosis IMO Codes Diagnosis Note [id number] MD SHERLY Seaman MD [address] [facility] [address] [place] [id number] 11/26/2017 11:05:52 11/26/2017 13:38:21 Herpetic ulceration of vulva 38380830 A60.04 A60.09 Venereal d isease screening 500166037 Z11.3 Candidal vulvovaginitis 94376835 B37.3 [id number] MD SHERLY Seaman MD [address] [place] [address],[place] [id number] 12/03/2017 13:16:26 12/03/2017 15:49:53 Lesion of vulva 617757360 N90.9 Dyspareunia 95535249 N94 .10 History of chlamydial infection 374091649 Z86.19 [id number] MD SHERLY Seaman MD [address] [place] [address],[place] [id number] 12/24/2017 09:17:38 12/24/2017 12:03:22 Candidal vulvovaginitis 97918506 B37.3 Dysuria 43173709 R30.0 [id number] MD SHERLY Seaman MD [address] [place] [address],[place] [address] 05/25/2018 13:02:26 05/25/2018 14:33:36 Candidal vulvovaginitis 01585323 B37.3 Vulvitis 96874596 N76.2 Lesion of vulva 04011404 6 N90.9 [id number] MD SHERLY Seaman MD [address] [place] [address],[place] [id number] 08/05/2018 14:19:53 08/05/2018 15:24:00 Candidal vulvovaginitis 21059352 B37.3 [id number] MD SHERLY Seaman MD [address] [place] [address],[place] [id number] 08/19/2018 10:17:41 08/19/2018 13:12:01 Venereal disease screening 626097356 Z11.3 Candidal vulvovaginitis 80604590 B37.3 Lesion of vulva 59211554 6 N90.9 [id number] MD SHERLY Seaman MD [address] [place] [address],[place] [id number] 10/12/2018 12:50:50 10/12/2018 13:33:37 Candidal vulvovaginitis 09525500 B37.3 History of chlamydial infection 721372869 Z86.19 [id number] MD SHERLY Seaman MD [address] [place] [address],[place] [id number] 12/09/2018 09:54:15 12/09/2018 11:18:40 Candidal vulvovaginitis 51207879 B37.3 [id number] MD SHERLY Seaman MD [address] [place] [address], [place] [id number] 01/31/2019 09:36:14 01/31/2019 15:08:16 Candidal vulvovaginitis 43339392 B37.3 [id number] MD SHERLY Seaman MD [address] [place] [address], [place] [id number] 02/03/2019 13:24:43 02/03/2019 13:59:22 Vulvitis 38665755 N76.2 [id number] MD SHERLY Seaman MD [address] [place] [address], [address] [place] [id number] 04/25/2019 12:55:43 04/25/2019 15:04:49 Uses oral contraception 4790666 Z79.3 Specialize d medical examination 78011728 Z01.419 Venereal d isease screening 073617636 Z11.3 Dysuria 44075512 R30.0 [id number] MD SHERLY Seaman MD [address] [place] [address], [place] [id number] 08/04/2019 14:12:43 08/04/2019 15:44:40 Irregular periods 14566280 N92.6 Chlamydial infection 105 541164 A74.9 [id number] MD SHERLY Seaman MD [address] [place] [address], [place] [address] 08/23/2019 13:18:57 08/23/2019 14:42:32 Venereal disease screening 768579188 Z11.3 History of chlamydial infection 805449787 Z86.19 Candidal vulvovaginitis 36217564 B37.3 [id number] MD SHERLY Seaman MD [address] [place] [address],[place] [address] [place] POPE[address] 5 09/19/2019 12:57:00 09/19/2019 14:40:52 Venereal disease screening 484485453 Z11.3 Chlamydial infection 105 547138 A56.02 [id number] MD SHERLY Seaman MD [address] [place] [address],[place] [id number] 01/30/2020 14:21:03 01/31/2020 08:19:53 Venereal disease screening 966445301 Z11.3 Lesion of vulva 34038433 6 N90.9 [id number] MD SHERLY Seaman MD [address] [place] [address], [place] [id number] 03/09/2020 13:29:24 03/09/2020 14:27:16 Acute lower urinary tract infection 803288409 R30.0 Venereal d isease screening 259864799 Z11.3 Candidal vulvovaginitis 93338029 B37.3 [id number] MD SHERLY Seaman MD [address] [place] [address],[place] [address] 07/16/2020 13:16:09 07/16/2020 14:17:13 Specialized medical examination 92249318 Z01.419 Venereal d isease screening 265070784 Z11.3 [id number] MD SHERLY Seaman MD [address] [place] [address],[place] [id number] 11/01/2020 12:58:10 11/01/2020 14:21:28 Acute lower urinary tract infection 481092636 R30.0 Candidal vulvovaginitis 79659717 B37.3 [id number] MD SHERLY Seaman MD [address] [place] [address],[place] [id number] 03/20/2022 14:34:48 03/20/2022 15:49:31 Specialized medical examination 78205754 Z01.419 Venereal d isease screening 817912009 Z11.3 Candidal vulvovaginitis 96824326 B37.3 [id number] MD SHERLY Seaman MD [address] [place] [address],[place] [id number] 05/04/2023 15:12:54 05/04/2023 16:09:48 Specialized medical examination 38688314 Z01.419 Venereal d isease screening 889330831 Z11.3 Candidal vulvovaginitis 58451282 B37.31 [id number] MD SHERLY Seaman MD [address] [place] [address],[place] [id number] 08/18/2023 14:46:36 08/19/2023 10:41:02 Atypical squamous cells of undetermined significance on cervical Papanicolaou smear 581381933 R87.610 [id number] MD SHERLY Seaman MD [address] [place] [address],[place] [id number] 10/13/2024 15:11:13 10/13/2024 15:40:44 Specialized medical examination 95451811 Z01.419 Venereal d isease screening 910395408 Z11.3 [id number] MD SHERLY Seaman MD [address] [place] [address],[place] [id number] 11/14/2024 14:50:23 11/14/2024 15:40:13 Abnormal uterine bleeding 2856049590 9100 N93.8 [id number] [id number] MD SHERLY Seaman MD [address] [place] [address],[place] [id number] 12/08/2024 13:54:27 12/08/2024 15:28:03 Abnormal uterine bleeding 9279789073 9100 N93.9 25202614 [id number] MD SHERLY Seaman MD [address] [place] [address],[place] [id number] 03/13/2025 14:27:48 03/15/2025 09:24:02 Amenorrhea 83909109 N91.1 Unintentio nal weight loss 523704611 R63.4 56266311 Health Concerns Section Related Observation LastModified by Organization Detai ls LastModified Time None Recorded Concern Status LastModified by Organization Details LastModified Time None Recorded Advance Directives Directive None Recorded Payers Insurance Date Sequence Insurance Name Policy Number Policy Ramirez Covered Member ID Ramirez Member ID Guarantor Name 04/25/2019 1 [facility] (O) [id number] Julio Christ [id number] Morelia Christ 03/13/2025 [facility] [id number] Morelia Christ [id number] Moreliarodney Polo 03/13/2025 [employer] Morelia Christ [id number] Moreliarodney Polo 03/13/2025 1 [facility] [id number] Julio Polo [id number] Morelia Polo 01/30/2020 1 [employer] ([place] [id number] Julio Polo [id number] Morelia Polo 05/04/2023 1 [facility] [employer] [facility] (O) [id number] Julio Christ [id number] Morelia Brooksden Notes Date Note Type Note Provider Name and Address Organization Details Recorded Time 08/18/2023 text/html She is here for repeat pap after pap with ASCUS without HR HPV. Sherly Lind MD [address] [facility],[address], [place], [address], [place] [facility], 08/18/2023 15:04:08 10/13/2024 text/html She is here for annual, doing well on the OCP. Note from 2022: She is her for annual, doing well on OCP. Believes she may have a vaginal yeast infection. She began having vaginal pruritus 2 weeks ago, and in the past few days it has worsened. The last time she was treated for vaginal yeast was several months ago. Sherly Lind MD [address], [place], [address], [place] [facility], 10/13/2024 15:38:36 11/14/2024 text/html She is here for abnormal uterine bleeding. She has her normal menses beginning 10/18/24, at the correct time. She has not missed any pills. Then she had a 7 day episode of bleeding beginning on the that was like a menses, stopped, then just restarted again today which would have been the proper timing on her pill pack. Se was taking a medication that she stopped on 10/14/24, ariprazole. Sherly Lind MD [address], [place], [address], [place] [facility], 11/14/2024 15:26:49 12/08/2024 text/html She started on lamictal in July and is now having some irregular vaginal bleeding on her combination OCP. Her psychiatrist advised her to take the pill at a different time than the OCP but she is concerned it may be less effective for control because her pharmacist told her that. Sherly Lind MD [address], [place], [address], [place] [facility], 12/08/2024 14:38:48 03/13/2025 text/html She is here for a 3 month history of amenorrhea. She has a 30 pound unintended weight loss since starting adderall in 09/13, she wonders if this is related. She stopped the OCP in 01/11, had been on progestin only pill, as she is considering fertility. She talks to her psychiatrist in 3 days from now about this. Sherly Lind MD [address], [place], [address], [place] [facility], 03/14/2025 07:29:09 OBGyn Episode No OBEpisode recorded.
--- OUTSIDE RECORDS SUMMARY | 2025-05-22 12:31 | XMS_ITS | Clinical Summary ---
Author Organization [facility] Address [address] [place] [phone] Phone Care Team Providers Care Sexer Name Role Phone Unavailable Primary Care Provider [...] this topic Procedures * Due to [place] [employer] law, this organization might not be sharing sensitive test results. Procedure Name Priority Date/Time Associated Diagnosis Comments CHLAMYDIA AND GONORRHEA, AMPLIFIED Routine 10/28/2017 12:00 AM EDT from Last 3 Months or Most Recently Relevant to Health Maintenance Results * Due to [place] [employer] law, this organization might not be sharing sensitive test results. * Chlamydia and Gonorrhoea, Amplified (10/28/2017 12:00 AM EDT) URINE GC AMP PROBE NEGATIVE (NEG) C ONVERTED LABS Comment: No Neisseria Gonorrhoeae RNA detected in this patient's sample (REFERENCE RANGE/NORMAL VALUE: NOT DETECTED) NOTE: This test uses garbage worker-mediated amplification method to detect rRNA from N.Gonorrhoeae. [...] without risk of sexual abuse. Consult the [facility] if needed. Contact [...] VALUE: NOT DETECTED) Note: This test uses garbage worker- mediated amplification method to detect rRNA from C. Trachomatis 10/28/2017 Narrative CONVERTED LABS - 10/28/2017 12:00 AM EDT Screening Negative Joie Dent 10/27/2017 04:32:04 PM > sent to [facility] Erendira Skaggs 10/27/2017 04:33:11 PM > see tel encounter RayAngela J 10/28/2017 02:32:33 PM > Erendira Skaggs 10/29/2017 07:40:12 AM > Erendira Skaggs MD LAB MICROBIOLOGY - GENERAL ORDER KRISTIAN Final Result CONVERTED LABS from Last 3 Months or Most Recently Relevant to Health Maintenance Insurance [facility] HMO
== END 2025-05-22 10:27 | disposition home or self-care (01) ==
LOC: HO.NEURO 10:26
PROVIDERS: PCP Internal Medicine; Visit Provider Nurse Practitioner
DX: R40.20 Unspecified coma (principal); R51.9 Headache, unspecified
CPT/HCPCS: 95819

== ENCOUNTER → 2025-05-22 12:09 | Outpatient (BNV) | payer OTHER, SELFPAY | PROVIDERS: PCP Internal Medicine; Visit Provider Psychiatry & Neurology Neurology | DX: R94.01 Abnormal electroencephalogram [EEG] (principal); R55 Syncope and collapse; R68.89 Other general symptoms and signs | CPT/HCPCS: 95816 ==

== ENCOUNTER 2025-06-12 07:55 | Outpatient (AMB) | payer OTHER, SELFPAY ==
--- OUTSIDE RECORDS SUMMARY | 2025-06-12 07:58 | XMS_ITS | Data Portability ---
Author Organization [place] - [facility],, SHERLY LIND MD Address [address] [facility] [address] [place] [address] Care Team Providers Care Executive Receptionist Name Role Phone JERMAINE RAZA Primary Care Provider Assessment No assessment recorded. Plan of Treatment Reminders Order Date Submit Date Provider Last Modified By Organization Details Last Modified Time Details Appointments ANNUAL EXAM 2025 03:20P M Sherly Lind MD Not available Not available Not available Lab beta-HCG, qualitati ve, serum or plasma 2024 025 [facility], [address] [place] [address] [address], [place], [address], 03/19/2025 08:06:32 prolactin , serum 2024 025 [facility], [address] [place] [address] [address], [place], [address], 03/19/2025 08:06:31 FSH (follicle -stimulat ing hormone), serum 2024 025 [facility], [address] [place] [address] [address], [place], [address], 03/19/2025 08:06:31 testoster one, free + total, serum 2024 025 [email or web address] [facility], [address] [place] [address] [address], [place], [address], 03/21/2025 07:14:29 TSH + free T4, serum 2024 025 [facility], [address], [place], [address], 03/19/2025 08:06:30 estradiol , serum 2024 025 [facility], [address], [place], [address], 03/19/2025 08:06:31 test, urine 2024 025 [email or web address] 1 In-Office Order, Internal Use Only DO Not Attach Compendium DO Not Attach Compendium, Do Not Delete/merge, [id number] 03/13/2025 14:53:59 test, urine 2024 025 [email or web address] 1 In-Office Order, Internal Use Only DO Not Attach Compendium DO Not Attach Compendium, Do Not Delete/merge, [id number] 11/14/2024 15:26:28 beta-HCG, qualitati ve, serum or plasma 2024 025 [facility], [address] [facility], [place], [address], 02/06/2025 08:45:33 TSH + free T4, serum 2024 025 [facility], [address], [place], [address], 02/06/2025 08:45:33 cytology report, thin prep, smear or scraping, cervical or vaginal 2024 025 [facility] (Centralized Electronic Ordering - All Locations), Patient Can Go To The Location Of Their Choice, [id number] 10/15/2024 00:16:23 pap, LB 2023 024 [facility]ations), Patient Can Go To The Location Of Their Choice, [address] 08/21/2023 11:22:35 Referral None recorded. Procedures None recorded. Surgeries None recorded. Imaging None recorded. Medication Orders norethind dee (contrace ptive) 0.35 mg tablet 2024 025 [facility]/Pharmacy #[id number], [address] [place], [address], 03/13/2025 14:34:32 norgestim ate 0.25 mg-ethiny l estradiol 0.035 mg tablet 2024 025 [facility]/Pharmacy #2025, [address] [place], [address], 03/13/2025 14:34:27 Patient TargetsNo targets recorded. Patient Instructions Encounter Date Encounter Id Patient Instructions Last Modified By Organization Details Last Modified Time 08/18/2023 [id number] abnormal Pap shakira t: care instructions savita Not available 08/18/2023 15:03:24 She is here for repeat pap after pap with ASCUS without HR HPV. Pap taken. If ASCUS then colpo, if negative then return for next annual as scheduled. savita Not available 08/18/2023 15:03:52 10/13/2024 [id number] learning about healthy weight savita Not available [...] to pharmacy. Not available 10/13/2024 15:38:20 11/14/2024 [id number] She is here for abnormal uterine bleeding. [...] 25 minutes Not available 11/14/2024 15:23:47 12/08/2024 [id number] She started on lamictal in July and [...] 25 minutes Not available 12/08/2024 14:25:14 03/13/2025 [id number] secondary amenorrhea: care instructions Not available 03/13/2025 [...] review and coordination of care: 25 minutes [email or web address] Not available 03/14/2025 07:28:40 Reason for Referral [...] Tissu e Sourc e: 1: THINP REP [employer]ER PAP TEST, CERVI ENRICO: Final Diagn osis: NEGAT JESSICA FOR INTRA EPITH ELIAL LESIO N OR MALIG LISSA . Satis facto ry for evalu ation . Endoc ervic al/tr ansfo rmati on zone prese nt. Clini enrico Histo ry: Date of Last Menst rual Perio d: not avail able Menst rual Histo ry: not avail able Contr acept jessica Histo ry: not avail able Ancil sonja Testi ng: HPV (ASCU S) Case image d by the ThinP rep Imagi ng Syste m with юлия lopez michael gallo or paul jules Perfo rmed at [facility] ate Refer ence [facility], [address] [place] Clini enrico Histo ry (othe r): R87.6 10, DIAGN OSTIC FOLLO W UP, 05/04 ASCUS HPV Phone #: [phone], On-Ca ll Patho logis t: [id number] Not Available [facility] (Centralized Electronic Ordering - All Locations) Patient Can Go To The Location Of Their Choice, [address] 08/21/2023 11:22:34 10/14/19 25 10/14/2024 IGP, CTNG, RFX APTIM A HPV ASCU diagnosis: João LOPEZ FOR INTRA EPITH ELIAL MITALI Valdez OR DARYA ALCARAZ . Not Available [facility] ([facility]) [address] [place], [address], 10/15/2024 00:16:23 10/14/19 25 10/14/2024 IGP, CTNG, RFX APTIM A HPV ASCU specimen adequacy: João corbin Satis facto ry for evalu ation . Endoc ervic al and/o r squam ous metap lasti c cells (endo cervi enrico compo nent) are prese nt. Not Available [facility] ([facility]) [address] [place], [address], 10/15/2024 00:16:23 10/14/19 25 10/14/2024 IGP, CTNG, RFX APTIM A HPV ASCU clinician provided ICD10: João corbin Z01.4 19 Not Available [facility] ([facility]) [address] [place], [address], 10/15/2024 00:16:23 10/14/19 25 10/14/2024 IGP, CTNG, RFX APTIM A HPV ASCU performed by: João Gloria , Cytot cristian corbin (ASCP ) Not Available [facility] ([facility]) [address] [place], [address], 10/15/2024 00:16:23 10/14/1910/14/2024 IGP, CTNG, RFX APTIM A HPV ASCU . . Not Available [facility] ([facility]) [address] [facility], [place], [address], 10/15/2024 00:16:23 10/14/19 25 10/14/2024 IGP, CTNG, [...] ts do occur . Not Available [facility] ([facility]) [address] [facility], [place], [address], 10/15/2024 00:16:23 10/14/1910/14/2024 IGP, CTNG, RFX APTIM A HPV ASCU test methodology: Commen t This liqui d based ThinP rep(R ) pap test was scree ankush with the use of an image guide d syste m. Not Available [facility] ([facility]) [address] [facility], [place], [address], 10/15/2024 00:16:23 10/14/1910/14/2024 IGP, CTNG, RFX APTIM A HPV ASCU . Commen t The HPV DNA refle x crite vaughn were not met with this speci men resul t there fore, no HPV testi ng was perfo rmed. Not Available [facility] ([facility]) [address] [place], [address], 10/15/2024 00:16:23 03/27/20 25 10/14/2024 IGP, CTNG, RFX APTIM A HPV ASCU chlamydia, nuc. acid amp Negati ve negati ve Not Available [facility] ([facility]) [address] [place], [address], 10/15/2024 00:16:23 10/14/19 25 10/14/2024 IGP, CTNG, RFX APTIM A HPV ASCU gonococcus, nuc. acid amp Negati ve negati ve Not Available [facility] ([facility]) [address] [facility], [place], [address], 10/15/2024 00:16:23 11/15/19 25 11/14/2024 pregn js test, urine HCG negati ve Not Available In-Office Order Internal Use Only DO Not Attach Compendium DO Not Attach Compendium, Do Not Delete/merge, [id number] 11/14/2024 14:55:57 03/13/2003/13/2025 pregn js test, urine HCG negati ve Not Available In-Office Order Internal Use Only DO Not Attach Compendium DO Not Attach Compendium, Do Not Delete/merge, [id number] 03/13/2025 14:44:15 03/18/2003/19/2025 TSH+F REE T4 TSH 2.550 uIU/m L 0.450- 4.500 normal Not Available [facility] ([facility]) [address] [facility], [place], [address], 03/19/2025 08:06:30 03/18/2003/19/2025 TSH+F REE T4 T4,free(dire ct) 1.12 NG/dL 0.82-1 .77 normal Not Available [facility] ([facility]) [address] [place], [address], 03/19/2025 08:06:30 03/18/20 25 03/19/2025 FSH FSH 9.2 mIU/m L Adult Femal e Range Folli cular phase 3.5 - 12.5 Ovula tion phase 4.7 - 21.5 Lutea l phase 1.7 - 7.7 Postm enopa usal 25.8 - 134.8 Not Available [facility] ([facility]) [address] [place], [address], 03/19/2025 08:06:31 03/18/20 25 03/19/2025 PROLA CTIN prolactin 9.3 NG/mL 4.8-33 .4 normal Not Available [facility] ([facility]) [address] [place], [address], 03/19/2025 08:06:31 03/18/20 25 03/19/2025 ESTRA DIOL estradiol 57.6 pg/mL normal Adult Femal e Range Folli cular phase 12.5 - 166.0 Ovula tion phase 85.8 - 498.0 Lutea l phase 43.8 - 211.0 Postm enopa usal <6.0 - 54.7 Pregn js 1st trime ster 215.0 - >4300 .0 David ECLIA metho dolog y Not Available [facility] ([facility]) [address] [place], [address], 03/19/2025 08:06:31 03/18/20 25 03/19/2025 HCG QL W/REF MIKAELA TO HCG QN HCG,beta subunit,qual Negati ve mIU/m L negati ve <6 Not Available [facility] ([facility]) [address] [place], [address], 03/19/2025 08:06:32 03/18/20 25 03/21/2025 TESTO STERO NE, FREE+ TOTAL LC/MS free testosterone (direct) 0.4 pg/mL 0.0-4. 2 Not Available [facility] ([facility]) [address] [place], [address], 03/23/2025 16:06:24 03/18/20 25 03/23/2025 TESTO STERO NE, FREE+ TOTAL LC/MS testosterone , total, lc/MS 34.0 NG/dL 10.0-5 5.0 Not Available [facility] ([facility]) [address] [facility], [place], [address], 03/23/2025 16:06:24 Result Notes None recorded. Problems Name Problem SNOMED Code Status Onset Date Resolution Date Notes Provider Name and Address Organization Details Recorded Time Dyspareuni a 53295127 Active 2017 Sherly Lind MD [address], [place], [address], [place] [facility], 8 12:19:32 Lesion of vulva 350298101 Active 2017 Sherly Lind MD [address], [place], [address], [place] [facility], 8 12:19:39 History of chlamydial infection 868090657 Active 201710/08/17 had positive chlamydia infection Sherly Lind MD [address], [place], [address], [place] [facility], 8 12:20:02 Irritable bowel syndrome 17051368 Active 2021 A[place] [facility], 2 14:39:37 Syncope 865884492 Active 2022 AYLIN [place] [facility], 3 15:21:10 Problem Notes None recorded. [...] Updated DateTime 4 165.1 cm 20.4 kg/m2 75481.1 4 g 97.3 [degF] 79 /min 134/82 mm[Hg] Laura [facility], 4 14:50:55 Date Recorded Body height Body mass index (BMI) Body weight Heart rate Body temperature Systolic And Diastolic Provider Name and Address Organization Details Last Updated DateTime 5 167.64 cm 20.7 kg/m2 46355.5 4 g 114 /min 97.5 [degF] 126/76 mm[Hg] Laura [facility], 5 15:15:09 Date Recorded Body height Body temperature Body mass index (BMI) Body weight Heart rate Systolic And Diastolic Provider Name and Address Organization Details Last Updated DateTime 5 167.64 cm 98.3 [degF] 19.9 kg/m2 60580.0 2 g 100 /min 122/75 mm[Hg] Laura [facility], 5 14:53:14 Date Recorded Body height Body mass index (BMI) Body weight Heart rate Systolic And Diastolic Provider Name and Address Organization Details Last Updated DateTime 12/08/2024 167.64 cm 19.7 kg/m2 12217.99 g 129 /min 124/80 mm[Hg] Laura [facility], 12/08/2024 14:00:15 Date Recorded Body height Body mass index (BMI) Body weight Provider Name and Address Organization Details Last Updated DateTime 03/13/2025 167.64 cm 17.8 kg/m2 81811.16 g Laura [facility], 03/13/2025 14:33:24 Social History Question Answer Notes LastModified by Organization Details LastModified Time Tobacco Smoking Status Never Smoker A[place] [facility], 11/26/2017 11:23:15 How Many Years Have [...] not available 11/26/2017 Education 4 Year College [employer]. Information not available 08/18/2023 What Is The Highest Grade Or Level Of School You Have Completed Or The Highest Degree You Have Received? [id number] Information not available 10/13/2024 Who Is Your [...] anxious, or unable to sleep at night)? [id number] Information not available 03/20/2022 Family History Relationship Description Onset Age of this Age Resolved Age Notes LastModified by Organization Details LastModified Time Mother Substance abuse [email or web address] Not available 2017 11:23:02 Medical History Condition Response High Blood Pressure N Autoimmune Condition N Depression Y History of Ovarian Cancer N Anxiety Disorder Y Arthritis N Infertility N Kidney or Bladder Problems N Osteopenia N Asthma N Hepatitis N Anesthesia complications N Candidate for MyRisk panel N Lung Disease N Defects or Inherited Disease N BRCA testing in past N History of Cancer N Endometriosis N Thyroid Problems N GI Problems N Anemia N History of Breast Cancer N LISA exposure N Psychiatric Illness N Diabetes N Headaches or Migraines Y Heart Disease N Hypertension N Osteoporosis N [...] (COVID-19) vaccine, UNSPECIFIED 1 completed Not Available [facility] 08/18/2023 14:48:34 COVID-19, mRNA, LNP-S, PF, 30 mcg/0.3 mL dose 1 completed [place] [facility], 05/04/2023 15:20:25 COVID-19, mRNA, LNP-S, PF, 30 mcg/0.3 mL dose 1 completed [place] [facility], 05/04/2023 15:20:25 Hep A, ped/adol, 2 dose 8 completed [place] [facility], 05/04/2023 15:20:25 meningococcal MCV4P 6 completed [place] [facility], 05/04/2023 15:20:25 Past Encounters Encounter ID Performer Location Encounter Start Date Encounter Closed Date Diagnosis/Indication Diagnosis SNOMED-CT Code Diagnosis ICD10 Code Diagnosis IMO Codes Diagnosis Note [id number] MD SHERLY Seaman MD [address] [facility] [place] [address] 11/26/2017 11:05:52 11/26/2017 13:38:21 Herpetic ulceration of vulva 62204195 A60.04 A60.09 Venereal d isease screening 024049442 Z11.3 Candidal vulvovaginitis 55924742 B37.3 [id number] MD SHERLY Seaman MD [address] [place] [address],[place] [address] 12/03/2017 13:16:26 12/03/2017 15:49:53 Lesion of vulva 510932062 N90.9 Dyspareunia 47346722 N94 .10 History of chlamydial infection 569178051 Z86.19 [id number] MD SHERLY Seaman MD [address] [place] [address],[place] [address] 12/24/2017 09:17:38 12/24/2017 12:03:22 Candidal vulvovaginitis 95485814 B37.3 Dysuria 68019701 R30.0 [id number] MD SHERLY Seaman MD [address] [place] [address],[place] [address] 05/25/2018 13:02:26 05/25/2018 14:33:36 Candidal vulvovaginitis 96362582 B37.3 Vulvitis 10243267 N76.2 Lesion of vulva 05079529 6 N90.9 [id number] MD SHERLY Seaman MD [address] [place] [address],[place] [address] 08/05/2018 14:19:53 08/05/2018 15:24:00 Candidal vulvovaginitis 98425830 B37.3 [id number] MD SHERLY Seaman MD [address] [place] [address],[place] [address] 08/19/2018 10:17:41 08/19/2018 13:12:01 Venereal disease screening 202390294 Z11.3 Candidal vulvovaginitis 52099368 B37.3 Lesion of vulva 10101926 6 N90.9 [id number] MD SHERLY Seaman MD [address] [place] [address],[place] [address] 10/12/2018 12:50:50 10/12/2018 13:33:37 Candidal vulvovaginitis 79259331 B37.3 History of chlamydial infection 172978476 Z86.19 [id number] MD SHERLY Seaman MD [address] [place] [address],[place] [address] 12/09/2018 09:54:15 12/09/2018 11:18:40 Candidal vulvovaginitis 10337426 B37.3 [id number] MD SHERLY Seaman MD [address] [place] [address], [address] [place] [address] 01/31/2019 09:36:14 01/31/2019 15:08:16 Candidal vulvovaginitis 92149541 B37.3 [id number] MD SHERLY Seaman MD [address] [place] [address], [address] [place] [address] 02/03/2019 13:24:43 02/03/2019 13:59:22 Vulvitis 64529560 N76.2 [id number] MD SHERLY Seaman MD [address] [place] [address], [address] [place] [address] 04/25/2019 12:55:43 04/25/2019 15:04:49 Uses oral contraception 5280085 Z79.3 Specialize d medical examination 92482953 Z01.419 Venereal d isease screening 775857522 Z11.3 Dysuria 79196890 R30.0 [id number] MD SHERLY Seaman MD [address] [place] [address], [place] [address] 08/04/2019 14:12:43 08/04/2019 15:44:40 Irregular periods 98101579 N92.6 Chlamydial infection 105 240629 A74.9 [id number] MD SHERLY Seaman MD [address] [place] [address], [place] [address] 08/23/2019 13:18:57 08/23/2019 14:42:32 Venereal disease screening 999539979 Z11.3 History of chlamydial infection 773719599 Z86.19 Candidal vulvovaginitis 62969215 B37.3 [id number] MD SHERLY Seaman MD [address] [place] [address],[address] [place] 09/19/2019 12:57:00 09/19/2019 14:40:52 Venereal disease screening 561790728 Z11.3 Chlamydial infection 105 802678 A56.02 [id number] MD SHERLY Seaman MD [address] [place] [address],[place] [address] 01/30/2020 14:21:03 01/31/2020 08:19:53 Venereal disease screening 813987438 Z11.3 Lesion of vulva 01167607 6 N90.9 [id number] MD SHERLY Seaman MD [address] [place] [address], [place] [address] 03/09/2020 13:29:24 03/09/2020 14:27:16 Acute lower urinary tract infection 137178566 R30.0 Venereal d isease screening 143195358 Z11.3 Candidal vulvovaginitis 06142256 B37.3 [id number] MD SHERLY Seaman MD [address] [place] [address],[place] [address] 07/16/2020 13:16:09 07/16/2020 14:17:13 Specialized medical examination 84848001 Z01.419 Venereal d isease screening 343833296 Z11.3 [id number] MD SHERLY Seaman MD [address] [place] [address],[place] [address] 11/01/2020 12:58:10 11/01/2020 14:21:28 Acute lower urinary tract infection 968589823 R30.0 Candidal vulvovaginitis 21387598 B37.3 [id number] MD SHERLY Seaman MD [address] [place] [address],[place] [address] 03/20/2022 14:34:48 03/20/2022 15:49:31 Specialized medical examination 96377622 Z01.419 Venereal d isease screening 364648009 Z11.3 Candidal vulvovaginitis 65913502 B37.3 [id number] MD SHERLY Seaman MD [address] [place] [address],[place] [address] 05/04/2023 15:12:54 05/04/2023 16:09:48 Specialized medical examination 06058157 Z01.419 Venereal d isease screening 404194578 Z11.3 Candidal vulvovaginitis 35054026 B37.31 [id number] MD SHERLY Seaman MD [address] [place] [address],[place] [address] 08/18/2023 14:46:36 08/19/2023 10:41:02 Atypical squamous cells of undetermined significance on cervical Papanicolaou smear 578959934 R87.610 [id number] MD SHERLY Seaman MD [address] [place] [address],[place] [address] 10/13/2024 15:11:13 10/13/2024 15:40:44 Specialized medical examination 41606552 Z01.419 Venereal d isease screening 384115836 Z11.3 [id number] MD SHERLY Seaman MD [address] [place] [address],[place] [address] 11/14/2024 14:50:23 11/14/2024 15:40:13 Abnormal uterine bleeding 7585591420 9100 N93.8 69538 [id number] MD SHERLY Seaman MD [address] [place] [address],[place] [address] 12/08/2024 13:54:27 12/08/2024 15:28:03 Abnormal uterine bleeding 0414903944 9100 N93.9 30698039 [id number] MD SHERLY Seaman MD [address] [place] [address],[place] [address] 03/13/2025 14:27:48 03/15/2025 09:24:02 Amenorrhea 62357411 N91.1 Unintentio nal weight loss 049281344 R63.4 19714246 Health Concerns Section Related Observation LastModified by Organization Detai ls LastModified Time None Recorded Concern Status LastModified by Organization Details LastModified Time None Recorded Advance Directives Directive None Recorded Payers Insurance Date Sequence Insurance Name Policy Number Policy Ramirez Covered Member ID Ramirez Member ID Guarantor Name 04/25/2019 1 [facility] (O) [id number] Julio Christ [id number] Morelia Christ 03/13/2025 1 [facility] [id number] Morelia Christ [id number] Moreliarodney Polo 03/13/2025 [employer] Morelia Christ [id number] Moreliarodney Polo 03/13/2025 1 [facility] [id number] Julio Polo [id number] Morelia Polo 01/30/2020 1 [employer] ([place]) [id number] Julio Polo [id number] Morelia Polo 05/04/2023 1 [facility] Confer [facility] (O) [id number] Julio Christ [id number] Morelia Brooksden Notes Date Note Type Note Provider Name and Address Organization Details Recorded Time 08/18/2023 text/html She is here for repeat pap after pap with ASCUS without HR HPV. Sherly Lind MD [address] [facility],[address], [place], [address], [place] [facility], 08/18/2023 15:04:08 10/13/2024 text/html She is here [...] several months ago. Sherly Lind MD [address], [place], [address], [place] [facility], 10/13/2024 15:38:36 11/14/2024 text/html She is [...] on 10/14/24, ariprazole. Sherly Lind MD [address], [place], [address], [place] [facility], 11/14/2024 15:26:49 12/08/2024 text/html She started on lamictal in July and is now having some irregular vaginal bleeding on her combination OCP. Her psychiatrist advised her to take the pill at a different time than the OCP but she is concerned it may be less effective for control because her pharmacist told her that. Sherly Lind MD [address], [place], [address], [place] [facility], 12/08/2024 14:38:48 03/13/2025 text/html She is [...] MD [address], [place], [address], [place] [facility], 03/14/2025 07:29:09 OBGyn Episode No OBEpisode recorded.
--- OUTSIDE RECORDS SUMMARY | 2025-06-12 07:58 | XMS_ITS | Encounter Summary ---
Author Organization [facility] Address [address] [place] [phone] Phone Care Team Providers Care Residential Installer Name Role Phone Aisha Hartman MD Primary Care Provider [phone] Encounter Details Date Type Department Care Team (Late st Contact Info) Description 12/06/2017 [facility]counter [facility] [address] [address] Social History Tobacco Use Types Packs/Day Years [...] on filedocumented in this encounter Care Teams Residential Installer Relationship Specialty Start Date End Date Aisha Hartman MD [address] [place] [address] PCP - General 11/25/17 04/14/24 documented as of this encounter
--- OUTSIDE RECORDS SUMMARY | 2025-06-12 07:58 | XMS_ITS | Clinical Summary ---
Author Organization [facility] Address [address] [place] [address] Care Team Providers Care Ship Scaler Name Role Phone Perez Lema DO Primary [...] Depression Screening 07/20/2024 COVID-19 Vaccine (1 - 2024-2 6 season) 2025 Influenza Vaccine (#1) 2025 RSV [...] age to complete this topic Care Teams Ship Scaler Relationship Specialty Start Date End Date Perez Lema DO PCP - General Internal Medicine 06/18/21
--- OUTSIDE RECORDS SUMMARY | 2025-06-12 07:58 | XMS_ITS | Clinical Summary ---
Author Organization [facility] Address [address] [place] [id number] Phone Care Team Providers Care Bpm Developer Name Role Phone Unavailable Primary Care Provider [...] complete this topic Procedures * Due to [place] law, this organization might not be sharing sensitive test results. Procedure Name Priority Date/Time Associated Diagnosis Comments CHLAMYDIA AND GONORRHEA, AMPLIFIED Routine 10/28/2017 12:00 AM EDT from Last 3 Months or Most Recently Relevant to Health Maintenance Results * Due to [place] law, this organization might not be sharing sensitive test results. * Chlamydia and Gonorrhoea, Amplified (10/28/2017 12:00 AM EDT) URINE GC AMP PROBE NEGATIVE (NEG) C ONVERTED LABS Comment: No Neisseria Gonorrhoeae RNA detected in this patient's sample (REFERENCE RANGE/NORMAL VALUE: NOT DETECTED) NOTE: This test uses abe teacher-mediated amplification method to detect rRNA from N.Gonorrhoeae. [...] without risk of sexual abuse. Consult the [facility] if needed. Contact phone [...] VALUE: NOT DETECTED) Note: This test uses abe teacher- mediated amplification method to detect rRNA from C. Trachomatis 10/28/2017 Narrative CONVERTED LABS - 10/28/2017 12:00 AM EDT Screening Negative Joie Dent 10/27/2017 04:32:04 PM > sent to [facility] Erendira Skaggs 10/27/2017 04:33:11 PM > see tel encounter RayAngela J 10/28/2017 02:32:33 PM > Erendira Skaggs 10/29/2017 07:40:12 AM > Erendira Skaggs MD LAB MICROBIOLOGY - GENERAL ORDER KRISTIAN Final Result CONVERTED LABS from Last 3 Months or Most Recently Relevant to Health Maintenance Insurance [facility]
--- NOTE | 2025-06-12 08:17 | A.OFFVIS_ITS ---
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 At the time of our last visit she reported migraines starting in the 3rd grade at which time she had an MRI of the brain which was normal. She has been on amitriptyline as a child and started to wean off amitriptyline later in life. She would also use sumatriptan with some benefit. More recently, she has been having more frequent and longer lasting migraines a proximally 5 days per week lasting the entire day. Her pain was generally o ccipital and would radiate to the neck and top of head on both sides. She has dizziness, light sensitivity, nausea, and fatigue. Occasionally she can have vomiting. Her pain is like a punching pain and can be a stabbing sensation. She has no vision changes before her headacehs but has some spots in her vision during the migraines. She also endorsed some episodes of nausea, diaphoresis, and tinnitus leading up to berief episodes of loc. These episodes would take place before a headache episode. At the time of her last visit I ordered an MRI of the brain, EEG and a trial of magnesium and ribiflaven for precevention and naratriptan for acute therapy. She is here today for a follow-up visit. She has not yet had her MRI but her EEG was performed on 05/22/2025. Her EEG was suggestive of a bilateral probably temportal in orgin abnormalities suggesting a tendency for seizure disorder. A 48hr AEEG was recommended. She tells me that she continues to have migraine-type headaches proximally 5 days without any change after starting the magnesium and riboflavin. She has been taking it daily. She has not yet tried the naratriptan because he feels that she is more concerned about her near syncopal episodes that are occurring daily rather than her headaches. She continues to have episodes approximately 3-4 times per day that include nausea, diaphoresis, and tinnitus. She has not had any episodes of dropping but does feel somewhat faint after these episodes. She often will develop a headache. She does take lamotrigine 150 mg extended release daily as prescribed by Psychiatry. Headache characteristics: Time of onset:3rd grade Location:back of neck anf temporal Radiation:Radiating to the frontal areas Positional component:No Character:Punching or stabbing Severity:Can cause syncope Duration:Nearly a full day Frequency:5 days per week Acute aggravating factors:Lights and stress Acute relieving factors:Rest and ibuprofen Associated symptoms:Light sensitivity, sound sensitivity, dizziness, and loc episodes Aura:LOC episodes can sometimes preceed a migraine Headache triggers:Unknown Relation to menses: Using condoms for prevention. Not clearly following a menstrual pattern. Other related background information: Sleep:Can be scattered with frequent nightly awakenings. 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 Does note some clenching History of head injury: Concussion at age 10. No LOC Family planning considerations: Does have plans to get in about 1 year. Past medication trials: Amitriptyline- No longer effective Propranolol- Caused dizziness Topiramate- Tried in the past but stopped Lamotrigine- Taking for psychiatric reasons Emgality- Helped but has severe needle anxiety Prior workup: -05/22/2025 Routine EEG: Suggestive of a bilateral probably temportal in orgin abnormalities suggesting a tendency for seizure disorder. -11/20/2022MRI of the cervical spine without contrast: The cervical spinal cord is normal in caliber and signal. No focal disc herniation. No central canal or foraminal stenosis. [facility] Medical History (Updated 05/02/25 @ 12:18 by Lakeshia Wilcox CNP) Somnolence RLS (restless legs syndrome) Migraine Review of Systems Const All systems reviewed & are unremarkable except as noted in HPI and below Physical Exam Const General: cooperative, healthy appearing, comfortable and no acute distress Nutritional Appearance: well nourished Orientation/consciousness: patient oriented x3 Limitations: no limitations HEENT Head: Yes normal to inspection and Yes normocephalic Eyes General: appearance normal, both eyes and all related structures Visual Aquino: normal visual aquino by confrontation Alignment and Position: alignment normal Periorbital: periorbital findings normal Direct Ophthalmoscopy: normal light reflex, no papilledema and fundi normal bilaterally Neck Neck: Yes normal visual inspection and Yes full ROM General: Yes no CVA tenderness Back/Spine/Pelvis Back: no CVA tenderness Cervical Spine: normal cervical lordosis Thoracic/Lumbar Spine: thoracic and lumbar spine normal to inspection Neuro General: patient oriented x3 Cranial nerves: Yes CN's II-XII intact bilaterally Cognition (Neuro): normal cognition Gait exam (Neuro): Normal gait present Motor exam (neuro): no tremor noted Pupils: Normal pupillary reactivity/response: bilateral Psych Appearance: grossly normal Mental Status: mental status grossly normal Speech and movement: Normal speech and movement present and Clear speech present Affect: normal affect Attitude: cooperative Thought process: Normal thought process present Thought content: Normal thought content present Insight: Good insight present (Psych) Judgement: Good judgement present (Psych) Assessment & Plan Assessment & Plan (1) Loss of consciousness: Code(s): R40.20 - Unspecified coma Category: Medical Plan Morelia is a 24-year-old female patient with a past medical history of anxiety, depression, insomnia who is here today for a follow up visit regarding headache and migraine as well as episodes of diaphoresis, nausea, tinnitus, and brief loc. Her EEG suggested a positive bilateral abnormality suggestive of a tendency for seizure disorder and a 48 hour ambulatory EEG was recommended. In the meantime, I will increase her lamotrigine to 200 mg daily to see if this helps to reduce her clinic episodes. She will remain on magnesium and riboflavin in the meantime and use naratriptan as needed. -48 hour ambulatory EEG -Increase lamotrigine to 200mg daily -Continue magnesium and riboflavin supplementation for migraine prevention -Continue naratriptan for acute therapy -Future considerations include a trial of Qulipta for migraine prevention and possible addition of other antiepileptic medications Orders: Orders EEG 48hr Ambulatory Today R40.20 - Unspecified coma Medications: Changed From lamotrigine ER 100 mg PO DAILY To lamotrigine ER 200 mg (2 x 100 mg) PO DAILY 180 tabs 3RF 90 days Coding Level of Care Code Est Pt Level 4 (05525) Diagnoses Loss of consciousness R40.20
[2025-06-12 08:23] VITALS: BP 112/70; PULSE 68; RESP 16; O2SAT 98
== END 2025-06-12 08:36 | disposition home or self-care (01) ==
LOC: HO.HSM 07:55
PROVIDERS: PCP Internal Medicine; Visit Provider Nurse Practitioner
DX: R40.20 Unspecified coma (principal)
CPT/HCPCS: 99214

== ENCOUNTER 2025-06-23 19:02 | Outpatient (REF) | payer OTHER, SELFPAY ==
--- NOTE | ~2025-06-23 | MR_ITS ---
EXAMINATION: MR BRAIN WITHOUT IV CONTRAST HISTORY: R51.9 - Headache, unspecified TECHNIQUE: Sagittal T1, and axial T1, FLAIR, T2, gradient echo, and diffusion weighted MR images of the brain were obtained. COMPARISON: There are no prior studies available for comparison. FINDINGS: The pituitary is normal in size. The cerebellar tonsils are normally located. The brain parenchyma is unremarkable, demonstrating normal duncan/white differentiation. No foci of abnormal signal intensity are identified. The ventricular system is normal in size and configuration. There is no mass effect or midline shift. No intra or extra-axial fluid collections are identified. There are no foci of restricted diffusion. Normal vascular flow voids are noted in the basilar and carotid arteries. The visualized paranasal sinuses are clear. MR/MR head/brain wo con IMPRESSION: Unremarkable MRI of the brain without contrast. Electronically signed by: Davion Solomon MD 06/26/2025 07:45 AM EST
--- OUTSIDE RECORDS SUMMARY | 2025-06-23 20:05 | XMS_ITS | Continuity of Care Document ---
Author Organization [facility],, SHERLY BARGER MD Address [address] [address] Care Team Providers Care Play Leader Name Role Phone JERMAINE RAZA Primary Care Provider Assessment No assessment recorded. Plan of Treatment Reminders Order Date Submit Date Provider Last Modified By Organization Details Last Modified Time Details Appointments PROBLEM 20 2024 09:20A Rafael Barger MD Not available Not available Not available ANNUAL EXAM 2025 03:20P Rafael Barger MD Not available Not available Not available Lab test, urine 2024 025 [email or web address] 1 In-Office Order, Internal Use Only DO Not Attach Compendium DO Not Attach Compendium, Do Not Delete/merge, [id number] 06/23/2025 09:47:55 insulin, free + total, serum 2024 025 [facility], [address] [facility], [place], [address], 06/23/2025 09:49:19 cortisol, am, serum 2024 025 [facility], [address], [place], [address], 06/23/2025 09:49:18 anti-yadira erian hormone (amh), serum 2024 025 [facility], [address], [place], [address], 06/23/2025 09:49:19 Referral None recorded. Procedures None recorded. Surgeries None recorded. Imaging None recorded. Medication Orders Kristina 0.35 mg tablet 2024 025 [id number], [address] [place], [address], 06/23/2025 09:50:23 Patient TargetsNo targets recorded. Patient Instructions Encounter Date Encounter Id Patient Instructions Last Modified By Organization Details Last Modified Time 06/23/2025 [id number] secondary amenorrhea: care instructions Not available 06/23/2025 09:47:55 She is here to discuss her 3 months of amenorrhea and her recent labs. She had initially had a 30 pound weight loss and amenorrhea, then had a menses in early March, nad now had a menses in late April, so may be getting back in cycle. She is sexually active with condoms only, and is taking mental health meds that she knows she should not be taking if she were to get . She desires in a year or so. Note from 02/2025: She is here for a 3 month [...] that are contraindicated in before getting . _ We had a long discussion about all this. We will check a serum insulin and cortisol in the am, and also an AMH, as she is still very concerned that she has a hormonal issue. IF these are normal range then she is advised she should just be patient and wait, and try to increase her weight by 10 pounds at a minimum. we discussed calories and protein bars, and and advised on ways to add healthy nutriton ot her diet, she has no appetite but perhaps can find protein bars she prefers, is advised to try Barbells and Alex bars. We also discussed her need for adequate control, she will go back on her progestin only pill at the beginning of her next menses. She is advised to try to switch off of any meds she should not take in , in anticipation of , she will speak with her psychiatrist. All questions answered. Face to face discussion, chart review and coordination of care: 30 minutes Not available 06/23/2025 10:36:16 Reason for Referral None Reported. Results Created Date Observation Date Name Description Value Unit Range Abnormal Flag Note LastModifiedBy Organization Detail LastModifiedTime 06/23/2006/23/2025 pregn js test, urine HCG negati ve Not Available In-Office Order Internal Use Only DO Not Attach Compendium DO Not Attach Compendium, Do Not Delete/merge, [id number] 06/23/2025 09:28:22 Result Notes None recorded. Problems Name Problem SNOMED Code Status Onset Date Resolution Date Notes Provider Name and Address Organization Details Recorded Time Dyspareuni a 11951376 Active 2017 MD Jeramy Seaman [address], [place], [address], [place] [facility], 8 12:19:32 Lesion of vulva 082127437 Active 2017 MD Jeramy Seaman [address], [place], [address], [place] - [facility], 8 12:19:39 History of chlamydial infection 037083910 Active 201710/08/17 had positive chlamydia infection MD Jeramy Seaman [address], [place], [address], [place] - [facility], 8 12:20:02 Irritable bowel syndrome 45926071 Active 2021 Fabiana curry [place] - [facility], 2 14:39:37 Syncope 293698250 Active 2022 Fabiana curry [place] - [facility], 3 15:21:10 Problem Notes None recorded. Medical [...] TABLET BY MOUTH TWICE A DAY DIRECTED 06/23 completed Not Available Not Available Not Available terconazole 0.4 % vaginal cream INSERT [...] TAKE 1 CAPSULE BY MOUTH EVERY DAY 06/23 completed Not Available Not Available Not Available minoxidil 2.5 mg tablet TAKE 1/2 TABLET BY MOUTH DAILY active Not Available Not Available No [...] tablet TAKE THREE TABLET TWICE DAILY DIRECTED 06/23 completed Not Available Not Available Not Available magnesium gluconate 12.5 mg magnesium (250 [...] completed Not Available Not Available Not Available ziprasidone 20 mg capsule TAKE 1 CAPSULE BY MOUTH TWICE A DAY DIRECTED FOR 30 DAYS 06/23 completed Not Available Not Available Not Available amitriptyli ne 25 mg tablet 08/05 completed Not Available Not Available Not Available lorazepam 0.5 mg tablet TAKE ONE TABLET BY MOUTH DAILY NEEDED FOR ANXIETY. MAY USE UP TO 5 TIMES PER MONTH active Not Available Not [...] completed Not Available Not Available Not Available triamcinolo ne acetonide 0.1 % topical ointment ARMIDA THIN [...] THE MORNING FOR 14 DAYS FOR ADHD 06/23 completed Not Available Not Available Not Available ziprasidone 40 mg capsule TAKE 1 CAPSULE BY MOUTH TWICE A DAY DIRECTED active [...] TABLET BY MOUTH TWICE A DAY DIRECTED 06/23 completed Not Available Not Available Not Available ondansetron 4 mg disintegrat ing tablet DISSOLVE 1 TABLET BY MOUTH EVERY 6 HOURS 10/13 completed Not Available Not Available Not Available fluoxetine 20 mg capsule TAKE 1 CAPSULE BY MOUTH DAILY WITH 40 MG CAPS FOR TOTAL DAILY DOSE = 60MG 10/13 completed Not Available Not Available Not Available sertraline 50 mg tablet 11/26 completed Not Available Not Available Not Available naratriptan 2.5 mg tablet TAKE 1 TAB AT ONSET OF HEADACHE IF NO RELIEF MAY REPEAT 1 TAB AFTER AT LEAST 4 HRS MAX 2 TABS/24 HRS active Not Available Not Available No t Available dicyclomine 10 mg capsule TAKE 1 CAPSULE BY MOUTH UP TO 4 TIMES A DAY NEEDED FOR ABDOMINAL PAIN AND CRAMPING active Not Available Not Available No t Available lamotrigine 100 mg tablet TAKE 1 TABLET BY MOUTH TWICE A DAY DIRECTED 06/23 completed Not Available Not Available Not Available ipratropium bromide 21 mcg (0.03 %) nasal spray 1 SPRAY EACH NOSTRIL TWICE A DAY NEEDED FOR NASAL CONGESTIO N active Not Available Not Available No t Available dextroamphe tamine-amph etamine 5 mg tablet TAKE 1 TABLET BY MOUTH TWICE A DAY NEEDED FOR ADHD FOR 30 DAYS 06/23 completed Not Available Not Available Not Available naproxen 500 mg tablet TAKE 1 [...] completed Not Available Not Available Not Available Kristina 0.35 mg tablet Take 1 tablet every day by oral route for 84 days. 2024 active Not Available Not Available Not Avai lable azelaic acid 15 % topical gel APPLY [...] THE MORNING FOR 30 DAYS, FOR ADHD. 06/23 completed Not Available Not Available Not Available lisdexamfet amine 40 mg capsule TAKE 1 CAPSULE BY MOUTH DAILY IN THE MORNING FOR 30 DAYS FOR ADHD active Not Available Not Available No t Available lamotrigine ER 100 mg tablet,exte nded release 24 hr TAKE 2 TABLETS (200 MG TOTAL) BY MOUTH DAILY FOR 90 DAYS active Not Available Not Available No t Available lamotrigine ER 50 mg tablet,exte nded release 24 hr TAKE ONE TABLET DAILY WITH 100 MG DOSE FOR DAILY DOSE OF 150 MG ER 06/23 completed Not Available Not Available Not Available lurasidone 20 mg tablet TAKE 1 TABLET BY MOUTH EVERY DAY AT DINNER FOR 30 DAYS 06/23 completed Not Available Not Available Not Available lidocaine 5 % topical ointment 08/05 completed Not Available Not Available Not Available Gynazole-1 2 % vaginal cream INSERT 1 APPLICATO RFUL BY VAGINALLY ROUTE FOR 1 DAY 04/25 completed Not Available Not Available Not Available Colace Clear 50 mg capsule 08/05 completed Not Available Not Available Not Available riboflavin (vitamin B2) 400 mg tablet TAKE 1 TABLET BY MOUTH EVERY DAY active Not Available Not Available No t Available Readi-Cat 2 2 % (w/v) oral [...] and Address Organization Details Last Updated DateTime 06/23/2025 167.64 cm 17.8 kg/m2 59523.16 g 76 /min 133/85 mm[Hg] Laura Haile [place] - [facility], 06/23/2025 09:21:53 Social History Question Answer Notes LastModified by Organization Details LastModified Time Tobacco Smoking Status Never Smoker Laura curry [place] - [facility], 11/26/2017 11:23:15 How Many Years Have You [...] not available 11/26/2017 Education 4 Year College [employer]. Information not available 08/18/2023 What Is The Highest Grade Or Level Of School You Have Completed Or The Highest Degree You Have Received? [id number] Information not available 10/13/2024 Who Is Your Employer? [employer] Information not available 03/20/2022 Are There Any Guns Present In Your Home? No Information not available 03/20/2022 High Number Of Sexual Partners No Information not available 11/26/2017 To Which Gender Do You Self-identify? Female Information not available 11/26/2017 Marital Status Single In Relationship Information not available 10/13/2024 What Was The Date Of Your Most Recent Tobacco Screening? 06/23/2025 Information not available 06/23/2025 What Is Your Relationship Status? Single Information [...] Zika-affected Area? No Information not available 11/26/2017 Sex: Female Functional Status Question Answer Note LastModified by Organizat ion Details LastModified Time Do you use any illicit or recreational drugs? No Information not available 05/04/2023 Do you or have you ever used any other forms of tobacco or nicotine? No Information not available 03/20/2022 What is your level of alcohol consumption? None Information not available 06/23/2025 Do you or have you ever used [...] anxious, or unable to sleep at night)? [id number] Information not available 03/20/2022 Family History Relationship Description Onset Age of this Age Resolved Age Notes LastModified by Organization Details LastModified Time Mother Substance abuse [email or web address] Not available 2017 11:23:02 Father Heart disease [email or web address] Not available 2024 09:25:05 Medical History Condition Response Anesthesia complications N [...] Osteoporosis N Gynecological History Statement/Question Response Flow Heavy Date of LMP 06/05/2025 Frequency of Cycle (Q days) Menses Monthly N Duration of Flow (days) 5 Age at Menarche 12 Current Control Method Condoms Age at First Child 1 Obstetrics History GPAL:G 0 P 0 0 0 0 Immunizations Vaccine Type Date Status Note Provider Antoni mario and Address Organization Details Recorded Time SARS-COV-2 (COVID-19) vaccine, UNSPECIFIED 1 completed Not Available [facility] 08/18/2023 14:48:34 COVID-19, mRNA, LNP-S, PF, 30 mcg/0.3 mL dose 1 completed [facility] [place] [facility], 05/04/2023 15:20:25 COVID-19, mRNA, LNP-S, PF, 30 mcg/0.3 mL dose 1 completed [facility] [place] [facility], 05/04/2023 15:20:25 Hep A, ped/adol, 2 dose 8 completed [facility] [place] [facility], 05/04/2023 15:20:25 meningococcal MCV4P 6 completed [facility] [place] [facility], 05/04/2023 15:20:25 Past Encounters Encounter ID Performer Location Encounter Start Date Encounter Closed Date Diagnosis/Indication Diagnosis SNOMED-CT Code Diagnosis ICD10 Code Diagnosis IMO Codes Diagnosis Note [id number] MD SHERLY Seaman MD [address] [facility] [facility] [address] 06/23/2025 09:10:43 06/23/2025 11:42:02 Amenorrhea 77985334 N91.2 37767 Contracept radha counseling 2196386653 2105 Z30.09 [id number] Health Concerns Section Related Observation LastModified by Organization Detai ls LastModified Time None Recorded Concern Status LastModified by Organization Details LastModified Time None Recorded Payers Encounter Date Sequence Insurance Name Policy Number Policy Ramirez Covered Member ID Ramirez Member ID Guarantor Name 06/23/2025 1 [facility] [id number] Morelia Polo [id number] Morelia Polo Notes Date Note Type Note Provider Name and Address Organization Details Recorded Time 06/23/2025 text/html She is here to discuss her 3 months of amenorrhea and her recent labs. She had initially had a 30 pound weight loss and amenorrhea, then had a menses in early March, nad now had a menses in late April, so may be getting back in cycle. She is sexually active with condoms only, and is taking mental health meds that she knows she should not be taking if she were to get . She desires in a year or so. Note from 02/2025: She is here for a 3 month history of amenorrhea. She has a 30 pound unintended weight loss since starting adderall in 09/13, she wonders if this is related.She stopped the OCP in 01/11, had been on progestin only pill, as she is considering fertility. She talks to her psychiatrist in 3 days from now about this.Urine hcg negative. Check serum hcg, prolactin, thyroid, estradiol, fsh, testosterone. she is advised that rapid weight loss can cause temporary amenorrhea as well.All questions answered. Call for lab results.Should change any meds that are contraindicated in before getting . Sherly Barger MD [address] [facility],[address], [place], [address], [place] - [facility], 06/23/2025 10:36:57 OBGyn Episode No OBEpisode recorded.
--- OUTSIDE RECORDS SUMMARY | 2025-06-23 20:05 | XMS_ITS | Data Portability ---
Author Organization [place] - [facility],, SHERLY LIND MD Address [address] [address] Care Team Providers Care Drier Transfer Car Operator Name Role Phone JERMAINE RAZA Primary Care Provider Assessment No assessment recorded. Plan of Treatment Reminders Order Date Submit Date Provider Last Modified By Organization Details Last Modified Time Details Appointments PROBLEM 20 2024 09:20A Joshua Lind MD Not available Not available Not available ANNUAL EXAM 2025 03:20P Joshua Lind MD Not available Not available Not available Lab test, urine 2024 025 [email or web address] 1 In-Office Order, Internal Use Only DO Not Attach Compendium DO Not Attach Compendium, Do Not Delete/merge, [id number] 06/23/2025 09:47:55 insulin, free + total, serum 2024 025 [facility], [address] [facility], [place], [address], 06/23/2025 09:49:19 cortisol, am, serum 2024 025 [facility], [address], [place], [address], 06/23/2025 09:49:18 anti-yadira erian hormone (amh), serum 2024 025 [facility], [address], [place], [address], 06/23/2025 09:49:19 beta-HCG, qualitati ve, serum or plasma 2024 025 [facility], [address], [place], [address], 03/19/2025 08:06:32 prolactin , serum 2024 025 [facility], [address], [place], [address], 03/19/2025 08:06:31 FSH (follicle -stimulat ing hormone), serum 2024 025 [facility], [address] [place] [address] RD [address], [place], [address], 03/19/2025 08:06:31 testoster one, free + total, serum 2024 025 [email or web address], [address] [place] [address] [address], [place], [address], 03/21/2025 07:14:29 TSH + free T4, serum 2024 025 [facility], [address] [place] [address] [address], [place], [address], 03/19/2025 08:06:30 estradiol , serum 2024 025 [facility], [address] [place] [address] [address], [place], [address], 03/19/2025 08:06:31 test, urine 2024 025 [email or web address] 1 In-Office Order, Internal Use Only DO Not Attach Compendium DO Not Attach Compendium, Do Not Delete/merge, [id number] 03/13/2025 14:53:59 test, urine 2024 025 [email or web address] 1 In-Office Order, Internal Use Only DO Not Attach Compendium DO Not Attach Compendium, Do Not Delete/merge, [id number] 11/14/2024 15:26:28 beta-HCG, qualitati ve, serum or plasma 2024 025 [facility], [address], [place], [address], 02/06/2025 08:45:33 TSH + free T4, serum 2024 025 [facility], [address], [place], [address], 02/06/2025 08:45:33 cytology report, thin prep, smear or scraping, cervical or vaginal 2024 [facility] (Centralized Electronic Ordering - All Locations), Patient Can Go To The Location Of Their Choice, [id number] 10/15/2024 00:16:23 Referral None recorded. Procedures None recorded. Surgeries None recorded. Imaging None recorded. Medication Orders Kristina 0.35 mg tablet 2024 [facility]acy #[id number], [address] [place], [address], 06/23/2025 09:50:23 norethind dee (contrace ptive) 0.35 mg tablet 2024 025 [facility] #2024, [address] [place], [address], 03/13/2025 14:34:32 norgestim ate 0.25 mg-ethiny l estradiol 0.035 mg tablet 2024 025 [facility] #2024, [address] [place], [address], 03/13/2025 14:34:27 Patient TargetsNo targets recorded. Patient Instructions Encounter Date Encounter Id Patient Instructions Last Modified By Organization Details Last Modified Time 10/13/2024 [id number] learning about healthy weight Not available 10/13/2024 15:37:45 She is here [...] rx to be called in to pharmacy. savita Not available 10/13/2024 15:38:20 11/14/2024 [id number] She is here for abnormal uterine bleeding. [...] review and coordination of care: 25 minutes [email or web address] Not available 11/14/2024 15:23:47 12/08/2024 [id number] She started on lamictal in July and [...] 25 minutes Not available 12/08/2024 14:25:14 03/13/2025 [id number] secondary amenorrhea: care instructions Not available 03/13/2025 [...] coordination of care: 25 minutes Not available 03/14/2025 07:28:40 06/23/2025 [id number] secondary amenorrhea: care instructions Not available 06/23/2025 [...] Abnormal Flag Note LastModifiedBy Organization Detail LastModifiedTime 10/14/1910/14/2024 IGP, CTNG, RFX APTIM A HPV ASCU diagnosis: Commimelda t NEGAT JESSICA FOR INTRA EPITH ELIAL MITALI N OR DARYA ALCARAZ . Not Available [facility] ([facility]) [address] [place], [address], 10/15/2024 00:16:23 10/14/19 25 10/14/2024 IGP, CTNG, RFX APTIM A HPV ASCU specimen adequacy: Commimelda t Satis facto ry for evalu ation . Endoc ervic al and/o r squam ous metap lasti c cells (endo cervi enrico compo nent) are prese nt. Not Available [facility] ([facility]) [address] [place], [address], 10/15/2024 00:16:23 10/14/19 25 10/14/2024 IGP, CTNG, RFX APTIM A HPV ASCU clinician provided ICD10: João corbin Z01.4 19 Not Available [facility] ([facility]) [address] [place], [address], 10/15/2024 00:16:23 10/14/19 25 10/14/2024 IGP, CTNG, RFX APTIM A HPV ASCU performed by: João Gloria , Cytot cristian corbin (ASCP ) Not Available [facility] ([facility]) [address] [place], [address], 10/15/2024 00:16:23 10/14/19 25 10/14/2024 IGP, CTNG, RFX APTIM A HPV ASCU . . Not Available [facility] ([facility]) [address] [place], [address], 10/15/2024 00:16:23 10/14/19 25 10/14/2024 IGP, CTNG, RFX APTIM A HPV ASCU note: João t The Pap smear is a scree [...] . Not Available [facility] ([facility]) [address] [place], [address], 10/15/2024 00:16:23 10/14/1910/14/2024 IGP, CTNG, RFX APTIM A HPV ASCU test methodology: Commen t This liqui d based ThinP rep(R ) pap test was smitha lechuga with the use of an image guide jennifer lewis. Not Available [facility] ([facility]) [address] [place], [address], 10/15/2024 00:16:23 10/14/19 25 10/14/2024 IGP, CTNG, RFX APTIM A HPV ASCU . Commen t The HPV DNA refle x crite vaughn were not met with this speci men resul t there fore, no HPV testi ng was perfo rmed. Not Available [facility] ([facility]) [address] [place], [address], 10/15/2024 00:16:23 10/14/1910/14/2024 IGP, CTNG, RFX APTIM A HPV ASCU chlamydia, nuc. acid amp Negati ve negati ve Not Available [facility] ([facility]) [address] [place], [address], 10/15/2024 00:16:23 10/14/19 25 10/14/2024 IGP, CTNG, RFX APTIM A HPV ASCU gonococcus, nuc. acid amp Negati ve negati ve Not Available [facility] ([facility]) [address] [place], [address], 10/15/2024 00:16:23 11/15/1911/14/2024 pregn js test, urine HCG negati ve Not Available In-Office Order Internal Use Only DO Not Attach Compendium DO Not Attach Compendium, Do Not Delete/merge, [id number] 11/14/2024 14:55:57 03/13/2003/13/2025 pregn js test, urine HCG negati ve Not Available In-Office Order Internal Use Only DO Not Attach Compendium DO Not Attach Compendium, Do Not Delete/merge, [id number] 03/13/2025 14:44:15 03/18/2003/19/2025 TSH+F REE T4 TSH 2.550 uIU/m L 0.450- 4.500 normal Not Available [facility] ([facility]) [address] [place], [address], 03/19/2025 08:06:30 03/18/2003/19/2025 TSH+F REE T4 T4,free(dire ct) 1.12 NG/dL 0.82-1 .77 normal Not Available [facility] ([facility]) [address] [place], [address], 03/19/2025 08:06:30 03/18/2003/19/2025 FSH FSH 9.2 mIU/m L Adult Femal e Range Folli cular phase 3.5 - 12.5 Ovula tion phase 4.7 - 21.5 Lutea l phase 1.7 - 7.7 Postm enopa usal 25.8 - 134.8 Not Available [facility] ([facility]) [address] [place], [address], 03/19/2025 08:06:31 03/18/2003/19/2025 PROLA CTIN prolactin 9.3 NG/mL 4.8-33 .4 normal Not Available [facility] ([facility]) [address] [place], [address], 03/19/2025 08:06:31 03/18/20 25 03/19/2025 ESTRA DIOL estradiol 57.6 pg/mL normal Adult Femal e Range Folli cular phase 12.5 - 166.0 Ovula tion phase 85.8 - 498.0 Lutea l phase 43.8 - 211.0 Postm enopa usal <6.0 - 54.7 Pregn js 1st trime ster 215.0 - >4300 .0 David ECLIA metho dolog y Not Available [facility] ([facility]) [address] [place], [address], 03/19/2025 08:06:31 03/18/20 25 03/19/2025 HCG QL W/REF MIKAELA TO HCG QN HCG,beta subunit,qual Negati ve mIU/m L negati ve <6 Not Available [facility] ([facility]) [address] [place], [address], 03/19/2025 08:06:32 03/18/20 25 03/21/2025 TESTO STERO NE, FREE+ TOTAL LC/MS free testosterone (direct) 0.4 pg/mL 0.0-4. 2 Not Available [facility] ([facility]) [address] [place], [address], 03/23/2025 16:06:24 03/18/20 25 03/23/2025 TESTO STERO NE, FREE+ TOTAL LC/MS testosterone , total, lc/MS 34.0 NG/dL 10.0-5 5.0 Not Available [facility] ([facility]) [address] [place], [address], 03/23/2025 16:06:24 06/23/20 25 06/23/2025 pregn js test, urine HCG negati ve Not Available In-Office Order Internal Use Only DO Not Attach Compendium DO Not Attach Compendium, Do Not Delete/merge, [id number] 06/23/2025 09:28:22 Result Notes None recorded. Problems Name Problem SNOMED Code Status Onset Date Resolution Date Notes Provider Name and Address Organization Details Recorded Time Dyspareuni a 19054702 Active 2017 Sherly Lind MD [address], [place], [address], [place] [facility], 8 12:19:32 Lesion of vulva 456054257 Active 2017 Sherly Lind MD [address], [place], [address], [place] [facility], 8 12:19:39 History of chlamydial infection 004914093 Active 201710/08/17 had positive chlamydia infection Sherly Lind MD [address], [place], [address], [place] [facility], 8 12:20:02 Irritable bowel syndrome 81250059 Active 2021 AYLIN [place] in [facility], 2 14:39:37 Syncope 361333858 Active 2022 AYLIN [place] in [facility], 3 15:21:10 Problem Notes None recorded. [...] and Address Organization Details Last Updated DateTime 167.64 cm 20.7 kg/m2 16620.5 4 g 114 /min 97.5 [degF] 126/76 mm[Hg] Laura Olvera in [facility], 15:15:09 Date Recorded Body height Body temperature Body mass index (BMI) Body weight Heart rate Systolic And Diastolic Provider Name and Address Organization Details Last Updated DateTime 167.64 cm 98.3 [degF] 19.9 kg/m2 31152.0 2 g 100 /min 122/75 mm[Hg] Laura Olvera in [facility], 14:53:14 Date Recorded Body height Body mass index (BMI) Body weight Heart rate Systolic And Diastolic Provider Name and Address Organization Details Last Updated DateTime 12/08/2024 167.64 cm 19.7 kg/m2 32604.99 g 129 /min 124/80 mm[Hg] Laura Olvera in [facility], 12/08/2024 14:00:15 Date Recorded Body height Body mass index (BMI) Body weight Provider Name and Address Organization Details Last Updated DateTime 03/13/2025 167.64 cm 17.8 kg/m2 78246.16 g Laura Olvera in [facility], 03/13/2025 14:33:24 Date Recorded Body height Body mass index (BMI) Body weight Heart rate Systolic And Diastolic Provider Name and Address Organization Details Last Updated DateTime 06/23/2025 167.64 cm 17.8 kg/m2 98476.16 g 76 /min 133/85 mm[Hg] Laura Olvera in [facility], 06/23/2025 09:21:53 Social History Question Answer Notes LastModified by Organization Details LastModified Time Tobacco Smoking Status Never Smoker AYLIN Arrington in [facility], 11/26/2017 11:23:15 How Many Years Have [...] not available 11/26/2017 Education 4 Year College [employer]. Information not available 08/18/2023 What Is The Highest Grade Or Level Of School You Have Completed Or The Highest Degree You Have Received? MA85723-8 Information not available 10/13/2024 Who Is Your [...] anxious, or unable to sleep at night)? [id number] Information not available 03/20/2022 Family History Relationship Description Onset Age of this Age Resolved Age Notes LastModified by Organization Details LastModified Time Mother Substance abuse [email or web address] Not available 2017 11:23:02 Father Heart disease [email or web address] Not available 2024 09:25:05 Medical History Condition Response Anesthesia complications N High Blood Pressure N Candidate for MyRisk panel N Autoimmune Condition N Depression Y Lung Disease N Defects or Inherited Disease N History of Ovarian Cancer N BRCA testing in past N Anxiety Disorder Y Arthritis N Infertility N History of Cancer N Endometriosis N Kidney or Bladder Problems N Thyroid Problems N GI Problems N Anemia N History of Breast Cancer N LISA exposure N Osteopenia N Psychiatric Illness N Diabetes N Headaches or Migraines Y Asthma N Hepatitis N Heart Disease N Hypertension [...] (COVID-19) vaccine, UNSPECIFIED 1 completed Not Available [facility] 08/18/2023 14:48:34 COVID-19, mRNA, LNP-S, PF, 30 mcg/0.3 mL dose 1 completed AYLIN [place] in [facility], 05/04/2023 15:20:25 COVID-19, mRNA, LNP-S, PF, 30 mcg/0.3 mL dose 1 completed AYLIN [place] in [facility], 05/04/2023 15:20:25 Hep A, ped/adol, 2 dose 8 completed AYLIN [place] in [facility], 05/04/2023 15:20:25 meningococcal MCV4P 6 completed AYLIN [place] in [facility], 05/04/2023 15:20:25 Past Encounters Encounter ID Performer Location Encounter Start Date Encounter Closed Date Diagnosis/Indication Diagnosis SNOMED-CT Code Diagnosis ICD10 Code Diagnosis IMO Codes Diagnosis Note [id number] MD SHERLY Seaman MD [address] [place] [address] [place] [address] 11/26/2017 11:05:52 11/26/2017 13:38:21 Herpetic ulceration of vulva 44226185 A60.04 A60.09 Venereal d isease screening 846723092 Z11.3 Candidal vulvovaginitis 10199428 B37.3 [id number] MD SHERLY Seaman MD [address] [place] [address] [place] [address] 12/03/2017 13:16:26 12/03/2017 15:49:53 Lesion of vulva 439117962 N90.9 Dyspareunia 86751132 N94 .10 History of chlamydial infection 482440027 Z86.19 [id number] MD SHERLY Seaman MD [address] [place] [address] [place] [address] 12/24/2017 09:17:38 12/24/2017 12:03:22 Candidal vulvovaginitis 65777308 B37.3 Dysuria 75272192 R30.0 [id number] MD SHERLY Seaman MD [address] [place], [place] [address] [address] 05/25/2018 13:02:26 05/25/2018 14:33:36 Candidal vulvovaginitis 76601214 B37.3 Vulvitis 66657758 N76.2 Lesion of vulva 47879668 6 N90.9 [id number] MD SHERLY Seaman MD [address] [place] [address],[facility] [place] [address] 08/05/2018 14:19:53 08/05/2018 15:24:00 Candidal vulvovaginitis 06339705 B37.3 [id number] MD SHERLY Seaman MD [address] [place] [address], [place] [address] 08/19/2018 10:17:41 08/19/2018 13:12:01 Venereal disease screening 757106165 Z11.3 Candidal vulvovaginitis 89704900 B37.3 Lesion of vulva 65023014 6 N90.9 [id number] MD SHERLY Seaman MD [address] [place] [address], [place] [address] 10/12/2018 12:50:50 10/12/2018 13:33:37 Candidal vulvovaginitis 35554390 B37.3 History of chlamydial infection 906480083 Z86.19 [id number] MD SHERLY Seaman MD [address] [place] [address],[facility] [place] [address] 12/09/2018 09:54:15 12/09/2018 11:18:40 Candidal vulvovaginitis 05043951 B37.3 [id number] MD SHERLY Seaman MD [address] [place] [address],[facility] [place] [address] 01/31/2019 09:36:14 01/31/2019 15:08:16 Candidal vulvovaginitis 05812256 B37.3 [id number] MD SHERLY Seaman MD [address] [place] [address],[facility] [address] 02/03/2019 13:24:43 02/03/2019 13:59:22 Vulvitis 94353808 N76.2 [id number] MD SHERLY Seaman MD [address] [place] [address],[facility] [address] 04/25/2019 12:55:43 04/25/2019 15:04:49 Uses oral contraception 8015978 Z79.3 Specialize d medical examination 06155322 Z01.419 Venereal d isease screening 144440830 Z11.3 Dysuria 48558501 R30.0 [id number] MD SHERLY Seaman MD [address] [place] [address],[facility] [place] [address] 08/04/2019 14:12:43 08/04/2019 15:44:40 Irregular periods 03700542 N92.6 Chlamydial infection 105 143501 A74.9 [id number] MD SHERLY Seaman MD [address] [place] [address],[place] [address] 08/23/2019 13:18:57 08/23/2019 14:42:32 Venereal disease screening 178951083 Z11.3 History of chlamydial infection 410943917 Z86.19 Candidal vulvovaginitis 15402899 B37.3 [id number] MD SHERLY Seaman MD [address] [place] [address],[place] [address] 09/19/2019 12:57:00 09/19/2019 14:40:52 Venereal disease screening 813722495 Z11.3 Chlamydial infection 105 047629 A56.02 [id number] MD SHERLY Seaman MD [address] [place] [address],[place] [address] 01/30/2020 14:21:03 01/31/2020 08:19:53 Venereal disease screening 533899939 Z11.3 Lesion of vulva 01951975 6 N90.9 [id number] MD SHERLY Seaman MD [address] [place] [address],[place] [address] 03/09/2020 13:29:24 03/09/2020 14:27:16 Acute lower urinary tract infection 932158946 R30.0 Venereal d isease screening 159834694 Z11.3 Candidal vulvovaginitis 33216523 B37.3 [id number] MD SHERLY Seaman MD [address] [place] [address],[place] [address] 07/16/2020 13:16:09 07/16/2020 14:17:13 Specialized medical examination 51820336 Z01.419 Venereal d isease screening 089071320 Z11.3 [id number] MD SHERLY Seaman MD [address] [place] [address],[place] [address] 11/01/2020 12:58:10 11/01/2020 14:21:28 Acute lower urinary tract infection 726516994 R30.0 Candidal vulvovaginitis 05341479 B37.3 [id number] MD SHERLY Seaman MD [address] [place] [address],[place] [address] 03/20/2022 14:34:48 03/20/2022 15:49:31 Specialized medical examination 54236352 Z01.419 Venereal d isease screening 528397034 Z11.3 Candidal vulvovaginitis 11599851 B37.3 [id number] MD SHERLY Seaman MD [address] [place] [address],[place] [address] 05/04/2023 15:12:54 05/04/2023 16:09:48 Specialized medical examination 95851768 Z01.419 Venereal d isease screening 441426285 Z11.3 Candidal vulvovaginitis 05222008 B37.31 [id number] MD SHERLY Seaman MD [address] [place] [address],[place] [address] 08/18/2023 14:46:36 08/19/2023 10:41:02 Atypical squamous cells of undetermined significance on cervical Papanicolaou smear 228011741 R87.610 [id number] MD SHERLY Seaman MD [address] [place] [address],[place] [address] 10/13/2024 15:11:13 10/13/2024 15:40:44 Specialized medical examination 76441144 Z01.419 Venereal d isease screening 999634215 Z11.3 [id number] MD SHERLY Seaman MD [address] [place] [address],[place] [address] 11/14/2024 14:50:23 11/14/2024 15:40:13 Abnormal uterine bleeding 2272212117 9100 N93.8 83396 [id number] MD SHERLY Seaman MD [address] [place] [address],[place] [address] 12/08/2024 13:54:27 12/08/2024 15:28:03 Abnormal uterine bleeding 9352531617 9100 N93.9 46977957 [id number] MD SHERLY Seaman MD [address] [facility],[address] [place] [address] 03/13/2025 14:27:48 03/15/2025 09:24:02 Amenorrhea 82398688 N91.1 Unintentio nal weight loss 835405663 R63.4 13728860 [id number] MD SHERLY Seaman MD [address] [facility],[address] [place] [address] 06/23/2025 09:10:43 06/23/2025 11:42:02 Amenorrhea 50185057 N91.2 14759 Contracept jessica counseling 8009022943 2105 Z30.09 [id number] Health Concerns Section Related Observation LastModified by Organization Detai ls LastModified Time None Recorded Concern Status LastModified by Organization Details LastModified Time None Recorded Advance Directives Directive None Recorded Payers Insurance Date Sequence Insurance Name Policy Number Policy Ramirez Covered Member ID Ramirez Member ID Guarantor Name 04/25/2019 1 [facility] Take Me Home [employer] [facility] (O) [id number] Julio Polo [id number] Morelia Polo 06/22/2025 1 [facility] [id number] Morelia Polo [id number] Morelia Polo 03/13/[address] [facility] - MEDICAL SUPPLEMENTAL PLAN Morelia Polo [id number] Morelia Polo 03/13/2025 1 [facility] [id number] Julio Polo [id number] Morelia Polo 01/30/2020 1 [employer] [id number] Julio Polo [id number] Morelia Polo 05/04/2023 1 [facility] Take Me Home [employer] [facility] (O) [id number] Julio Polo [id number] Morelia Polo Notes Date Note Type Note Provider Name and Address Organization Details Recorded Time 10/13/2024 text/html She is here for annual, doing well on the OCP. Note from 2023: She is her for annual, doing well on OCP. Believes she may have a vaginal yeast infection. She began having vaginal pruritus 2 weeks ago, and in the past few days it has worsened. The last time she was treated for vaginal yeast was several months ago. Sherly Lind MD [address], [place], [address], [place] - [facility], 10/13/2024 15:38:36 11/14/2024 text/html She is [...] on 10/14/24, ariprazole. Sherly Lind MD [address], [place], [address], [email or web address] - [facility], 11/14/2024 15:26:49 12/08/2024 text/html She started on lamictal in July and is now having some irregular vaginal bleeding on her combination OCP. Her psychiatrist advised her to take the pill at a different time than the OCP but she is concerned it may be less effective for control because her pharmacist told her that. Sherly Lind MD [address], [place], [address], [email or web address] - [facility], 12/08/2024 14:38:48 03/13/2025 text/html She is [...] MD [address], [place], [address], [email or web address] - [facility], 03/14/2025 07:29:09 06/23/2025 text/html She is here to discuss [...] are contraindicated in before getting . Sherly Lind MD [address] [facility],[address], [place], [address], [place] - [facility], 06/23/2025 10:36:57 OBGyn Episode No OBEpisode recorded.
--- OUTSIDE RECORDS SUMMARY | 2025-06-23 20:05 | XMS_ITS | Encounter Summary ---
Author Organization [facility] Address [address] [place] [address] Phone Care Team Providers Care Stocking Inspector Name Role Phone Aisha Hartman MD Primary Care Provider [phone] Encounter Details Date Type Department Care Team (Late st Contact Info) Description 12/06/2017 [facility]counter [facility] [address] [address] Social History Tobacco Use Types Packs/Day Years [...] on filedocumented in this encounter Care Teams Stocking Inspector Relationship Specialty Start Date End Date Aisha Hartman MD [address] [place] [address] PCP - General 11/25/17 04/14/24 documented as of this encounter
--- OUTSIDE RECORDS SUMMARY | 2025-06-23 20:05 | XMS_ITS | Clinical Summary ---
Author Organization [facility] Address [address] [place] [address] Phone Care Team Providers Care Repairer Controller Tester Name Role Phone Unavailable Primary Care Provider [...] complete this topic Procedures * Due to [place] [employer] law, this organization might not be sharing sensitive test results. Procedure Name Priority Date/Time Associated Diagnosis Comments CHLAMYDIA AND GONORRHEA, AMPLIFIED Routine 10/28/2017 12:00 AM EDT from Last 3 Months or Most Recently Relevant to Health Maintenance Results * Due to [place] [employer] law, this organization might not be sharing sensitive test results. * Chlamydia and Gonorrhoea, Amplified (10/28/2017 12:00 AM EDT) URINE GC AMP PROBE NEGATIVE (NEG) C ONVERTED LABS Comment: No Neisseria Gonorrhoeae RNA detected in this patient's sample (REFERENCE RANGE/NORMAL VALUE: NOT DETECTED) NOTE: This test uses perfumer-mediated amplification method to detect rRNA from N.Gonorrhoeae. [...] without risk of sexual abuse. Consult the [facility] if needed. Contact [...] VALUE: NOT DETECTED) Note: This test uses perfumer- mediated amplification method to detect rRNA from C. Trachomatis 10/28/2017 Narrative CONVERTED LABS - 10/28/2017 12:00 AM EDT Screening Negative Joie Dent 10/27/2017 04:32:04 PM > sent to [facility] Erendira Skaggs 10/27/2017 04:33:11 PM > see tel encounter RayAngela J 10/28/2017 02:32:33 PM > Erendira Skaggs 10/29/2017 07:40:12 AM > Erendira Skaggs MD LAB MICROBIOLOGY - GENERAL ORDER KRISTIAN Final Result CONVERTED LABS from Last 3 Months or Most Recently Relevant to Health Maintenance Insurance [facility] [employer]
== END 2025-06-23 19:03 | disposition home or self-care (01) ==
LOC: HO.MRI 19:02
PROVIDERS: PCP Internal Medicine; Visit Provider Nurse Practitioner
DX: R40.20 Unspecified coma (principal); R51.9 Headache, unspecified
CPT/HCPCS: 70551

== ENCOUNTER → 2025-06-23 19:16 | Outpatient (BNV) | payer OTHER, SELFPAY | PROVIDERS: PCP Internal Medicine; Visit Provider Radiology Diagnostic Radiology | DX: R51.9 Headache, unspecified (principal) | CPT/HCPCS: 70551 ==

== ENCOUNTER 2025-07-04 08:27 | Outpatient (AMB) | payer OTHER, SELFPAY ==
[2025-07-04 08:33] VITALS: BP 112/70; RESP 16; BMI 17.2
--- NOTE | 2025-07-04 08:33 | MHC.OFFVIS ---
Vital Signs 07/04/25 08:33 Height 5 ft 7 in Weight 110 lb BMI 17.2 BP 112/70 Blood Pressure Location Rt brachial Position Sitting Respiration 16 Intake Visit Reasons: FOLLOW UP AFTER MRI Surveillance Systems Analyst Required: No Allergies No Known Allergies Allergy (Verified 07/04/25 08:34) HPI Comments Details: Morelia is a 24-year-old female patient with a past medical history of anxiety, depression, insomnia who is here today for a follow up visit regarding headache and migraine. At the time of our initial visit she reported migraines starting in the 3rd grade at which time she had an MRI of the brain which was normal. She has been on amitriptyline as a child and started to wean off amitriptyline later in life. She would also use sumatriptan with some benefit. More recently, she has been having more frequent and longer lasting migraines a proximally 5 days per week lasting the entire day. Her pain was generally occipital and would radiate to the neck and top of head on both sides. She has dizziness, light sensitivity, nausea, and fatigue. Occasionally she can have vomiting. Her pain is like a punching pain and can be a stabbing sensation. She has no vision changes before her headacehs but has some spots in her vision during the migraines. She also endorsed some episodes of nausea, diaphoresis, and tinnitus leading up to brief episodes of loc. These episodes would take place before a headache episode. At the time of her last visit I ordered an MRI of the brain, EEG and a trial of magnesium and ribiflaven for precevention and naratriptan for acute therapy. Her EEG was performed on 05/22/2025. Her EEG was suggestive of a bilateral probably temportal in orgin abnormalities suggesting a tendency for seizure disorder. A 48hr AEEG was recommended and ordered. Her MRI of the brain was normal She continues to have migraine-type headaches proximally 5 days without any change after starting the magnesium and riboflavin. She has been taking it daily. She has not yet tried the naratriptan because he feels that she is more concerned about her near syncopal episodes that are occurring daily rather than her headaches. She continues to have episodes approximately 3-4 times per day that include nausea, diaphoresis, and tinnitus. She has not had any episodes of dropping but does feel somewhat faint after these episodes. She often will develop a headache. She had already been taking lamotrigine 150 mg extended release daily as prescribed by Psychiatry. At the time of our last office visit increase the dose to 200mg daily and she seems to be tolerating that well. She tells me today that she has seen a slight decrease in the frequency of her symptoms since increasing the dose. We discussed her headaches which have not changed since time of last visit and she would like to hold off on adding any new medication for now but is open to the idea of Qulipta in the future once her workup has been completed in terms of possible seizure. Headache characteristics: Time of onset:3rd grade Location:back of neck anf temporal Radiation:Radiating to the frontal areas Positional component:No Character:Punching or stabbing Severity:Can cause syncope Duration:Nearly a full day Frequency:5 days per week Acute aggravating factors:Lights and stress Acute relieving factors:Rest and ibuprofen Associated symptoms:Light sensitivity, sound sensitivity, dizziness, and loc episodes Aura:LOC episodes can sometimes preceed a migraine Headache triggers:Unknown Relation to menses: Using condoms for prevention. Not clearly following a menstrual pattern. Other related background information: Sleep:Can be scattered with frequent nightly awakenings. 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 Does note some clenching History of head injury: Concussion at age 10. No LOC Family planning considerations: Does have plans to get in about 1 year. Past medication trials: Amitriptyline- No longer effective Propranolol- Caused dizziness Topiramate- Tried in the past but stopped Lamotrigine- Taking for psychiatric reasons Emgality- Helped but has severe needle anxiety Prior workup: -06/23/2025 MR/MR head/brain wo con IMPRESSION: Unremarkable MRI of the brain without contrast. -05/22/2025 Routine EEG: Suggestive of a bilateral probably temportal in orgin abnormalities suggesting a tendency for seizure disorder. -11/20/2022MRI of the cervical spine without contrast: The cervical spinal cord is normal in caliber and signal. No focal disc herniation. No central canal or foraminal stenosis. [facility] Medical History (Updated 05/02/25 @ 12:18 by Lakeshia Wilcox CNP) Somnolence RLS (restless legs syndrome) Migraine Review of Systems Const All systems reviewed & are unremarkable except as noted in HPI and below Physical Exam Vital Signs: Last Vital Signs Resp 16 07/04/25 08:33 BP 112/70 07/04/25 08:33 BMI result Body Mass Index 17.2 Const General: cooperative, healthy appearing, comfortable and no acute distress Nutritional Appearance: well nourished Orientation/consciousness: patient oriented x3 Limitations: no limitations HEENT Head: Yes normal to inspection and Yes normocephalic Eyes General: appearance normal, both eyes and all related structures Visual Aquino: normal visual aquino by confrontation Alignment and Position: alignment normal Periorbital: periorbital findings normal Direct Ophthalmoscopy: normal light reflex, no papilledema and fundi normal bilaterally Neck Neck: Yes normal visual inspection and Yes full ROM General: Yes no CVA tenderness Back/Spine/Pelvis Back: no CVA tenderness Cervical Spine: normal cervical lordosis Thoracic/Lumbar Spine: thoracic and lumbar spine normal to inspection Neuro General: patient oriented x3 Cranial nerves: Yes CN's II-XII intact bilaterally Cognition (Neuro): normal cognition Gait exam (Neuro): Normal gait present Motor exam (neuro): no tremor noted Pupils: Normal pupillary reactivity/response: bilateral Psych Appearance: grossly normal Mental Status: mental status grossly normal Speech and movement: Normal speech and movement present and Clear speech present Affect: normal affect Attitude: cooperative Thought process: Normal thought process present Thought content: Normal thought content present Insight: Good insight present (Psych) Judgement: Good judgement present (Psych) Assessment & Plan Assessment & Plan (1) Loss of consciousness: Code(s): R40.20 - Unspecified coma Category: Medical Plan Morelia is a 24-year-old female patient with a past medical history of anxiety, depression, insomnia who is here today for a follow up visit regarding headache and migraine as well as episodes of diaphoresis, nausea, tinnitus, and brief loc. Her routine EEG suggested a positive bilateral abnormality suggestive of a tendency for seizure disorder and a 48 hour ambulatory EEG was recommended. In the meantime, I did increase her lamotrigine to 200 mg daily and she has seen some reduction in the frequency of her episodes with the dose incrase. She will remain on magnesium and riboflavin in the meantime and use naratriptan as needed for her headaches. We reviewed her MRI today which was normal. She will return after her 48hr amb EEG. We may consider Qulipta in the future for headache treatment but she would like to hold off for now. -48 hour ambulatory EEG scheduled for end of July 2025 -Continue lamotrigine to 200mg daily -Continue magnesium and riboflavin supplementation for migraine prevention -Continue naratriptan for acute therapy -Future considerations include a trial of Qulipta for migraine prevention and possible addition of other antiepileptic medications Coding Level of Care Code Est Pt Level 3 (64210) Diagnoses Loss of consciousness R40.20
--- OUTSIDE RECORDS SUMMARY | 2025-07-04 08:53 | XMS_ITS | Clinical Summary ---
Author Organization [facility] Address [address] [place] [address] Care Team Providers Care Wet Finisher Name Role Phone Perez Lema DO Primary Care Provider [phone] Medical History Medical History Date Comments Fainting [...] age to complete this topic Care Teams Wet Finisher Relationship Specialty Start Date End Date Perez Lema DO PCP - General Internal Medicine 06/18/21
--- OUTSIDE RECORDS SUMMARY | 2025-07-04 08:53 | XMS_ITS | Encounter Summary ---
Author Organization [facility] Address [address] [place] [id number] Phone Care Team Providers Care Catheter Builder Name Role Phone Aisha Hartman MD Primary Care Provider [phone] Encounter Details Date Type Department Care Team (Late st Contact Info) Description 12/06/2017 Conversion [facility]counter [facility] [address] [address] Social History Tobacco Use Types Packs/Day Years [...] on filedocumented in this encounter Care Teams Catheter Builder Relationship Specialty Start Date End Date Aisha Hartman MD [address] [place] [address] PCP - General 11/25/17 04/14/24 documented as of this encounter
--- OUTSIDE RECORDS SUMMARY | 2025-07-04 08:53 | XMS_ITS | Data Portability ---
Author Organization [place] - [facility],, SHERLY LIND MD Address [address] [address] Care Team Providers Care Retail Department Manager Name Role Phone JERMAINE RAZA Primary Care [...] DO Not Attach Compendium, Do Not Delete/merge, [id number] 06/23/2025 09:47:55 insulin, free + total, serum 2024 025 [email or web address] [facility], [address] [facility], [place], [address], 06/30/2025 07:16:54 cortisol, am, serum 2024 025 BrightQubeczywor [facility], [address] [facility], [place], [address], 06/30/2025 07:16:54 anti-yadira erian hormone (amh), serum 2024 025 BrightQubec[facility]wor [facility], [address] [facility], [place], [address], 06/30/2025 07:16:54 beta-HCG, qualitati ve, serum or plasma 2024 025 MILAGROS [facility], [address], [place], [address], 03/19/2025 08:06:32 prolactin , serum 2024 025 MILAGROS [facility], [address], [place], [address], 03/19/2025 08:06:31 FSH (follicle -stimulat ing hormone), serum 2024 025 MILAGROS [facility], [address], [place], [address], 03/19/2025 08:06:31 testoster one, free + total, serum 2024 025 [facility], [address] [place] [address] [address], [place], [address], 03/21/2025 07:14:29 TSH + free T4, serum 2024 025 MILAGROS [facility], [address], [place], [address], 03/19/2025 08:06:30 estradiol , serum 2024 025 MILAGROS [facility], [address], [place], [address], 03/19/2025 08:06:31 test, urine 2024 025 [email or web address] 1 In-Office Order, Internal Use Only DO Not Attach Compendium DO Not Attach Compendium, Do Not Delete/merge, [id number] 03/13/2025 14:53:59 test, urine 2024 025 [email or web address] 1 In-Office Order, Internal Use Only DO Not Attach Compendium DO Not Attach Compendium, Do Not Delete/merge, [id number] 11/14/2024 15:26:28 beta-HCG, qualitati ve, serum or plasma 2024 025 [facility], [address], [place], [address], 02/06/2025 08:45:33 TSH + free T4, serum 2024 025 [facility], [address], [place], [address], 02/06/2025 08:45:33 cytology report, thin prep, smear or scraping, cervical or vaginal 2024 025 [facility] (Centralized Electronic Ordering - All Locations), Patient Can Go To The Location Of Their Choice, [address] 10/15/2024 00:16:23 Referral None recorded. Procedures None recorded. Surgeries None recorded. Imaging None recorded. Medication Orders Kristina 0.35 mg tablet 2024 025 [facility] #[id number], [address] [place], [address], 06/23/2025 09:50:23 norethind dee (contrace ptive) 0.35 mg tablet 2024 025 [facility] #2024, [address] [place], [address], 03/13/2025 14:34:32 norgestim ate 0.25 mg-ethiny l estradiol 0.035 mg tablet 2024 025 [facility] #2024, [address] [place], [address], 03/13/2025 14:34:27 Patient TargetsNo targets recorded. Patient Instructions Encounter Date Encounter Id Patient Instructions Last Modified By Organization Details Last Modified Time 10/13/2024 [id number] learning about healthy weight smahorace Not available 10/13/2024 15:37:45 She is here [...] to pharmacy. Not available 10/13/2024 15:38:20 11/14/2024 [id number] She is here for abnormal uterine bleeding. [...] 25 minutes Not available 11/14/2024 15:23:47 12/08/2024 [id number] She started on lamictal in July and [...] 25 minutes Not available 12/08/2024 14:25:14 03/13/2025 [id number] secondary amenorrhea: care instructions Not available 03/13/2025 [...] 25 minutes Not available 03/14/2025 07:28:40 06/23/2025 [id number] secondary amenorrhea: care instructions Not available 06/23/2025 [...] CTNG, RFX APTIM A HPV ASCU diagnosis: Commen t NEGAT JESSICA FOR INTRA EPITH ELIAL LESIO N OR DARYA ALCARAZ . Not Available [facility] ([facility]) [address] [place], [address], 10/15/2024 00:16:23 10/14/19 25 10/14/2024 IGP, CTNG, RFX APTIM A HPV ASCU specimen adequacy: Commen t Satis facto ry for evalu ation . Endoc ervic al and/o r squam ous metap lasti c cells (endo cervi enrico compo nent) are prese nt. Not Available [facility] ([facility]) [address] [place], [address], 10/15/2024 00:16:23 10/14/19 25 10/14/2024 IGP, CTNG, RFX APTIM A HPV ASCU clinician provided ICD10: João corbin Z01.4 19 Not Available [facility] ([facility]) [address] [place], [address], 10/15/2024 00:16:23 10/14/19 25 10/14/2024 IGP, CTNG, RFX APTIM A HPV ASCU performed by: Gume Navarro (ASCP ) Not Available [facility] ([facility]) [address] [place], [address], 10/15/2024 00:16:23 10/14/19 25 10/14/2024 IGP, CTNG, RFX APTIM A HPV ASCU . . Not Available [facility] ([facility]) [address] [place], [address], 10/15/2024 00:16:23 10/14/19 25 10/14/2024 IGP, CTNG, RFX APTIM A HPV ASCU note: Commimelda t The Pap smear is a scree peña test rebel lechuga to aid in the detec tion of heri ligna nt and malig nant condi tions of the uteri ne cervi x. It is not a diagn ostic proce dure and shoul d not be used as the sole means of detec ting cervi enrico cance r. Both false -posi tive and false -nega tive repor ts do occur . Not Available [facility] ([facility]) [address] [place], [address], 10/15/2024 00:16:23 10/14/19 25 10/14/2024 IGP, CTNG, RFX APTIM A HPV ASCU test methodology: Commen t This liqui d based ThinP rep(R ) pap test was smitha lechuga with the use of an image guide jennifer roa Not Available [facility] ([facility]) [address] [place], [address], 10/15/2024 00:16:23 10/14/1910/14/2024 IGP, CTNG, RFX APTIM A HPV ASCU . Commen t The HPV DNA refle x crite vaughn were not met with this speci men resul t there fore, no HPV testi ng was perfo rmed. Not Available [facility] ([facility]) [address] [place], [address], 10/15/2024 00:16:23 10/14/1910/14/2024 IGP, CTNG, RFX APTIM A HPV ASCU chlamydia, nuc. acid amp Negati ve negati ve Not Available [facility] ([facility]) [address] [place], [address], 10/15/2024 00:16:23 10/14/1910/14/2024 IGP, CTNG, RFX APTIM A HPV ASCU gonococcus, nuc. acid amp Negati ve negati ve Not Available [facility] ([facility]) [address] [place], [address], 10/15/2024 00:16:23 11/15/1911/14/2024 pregn js test, urine HCG negati ve Not Available In-Office Order Internal Use Only DO Not Attach Compendium DO Not Attach Compendium, Do Not Delete/merge, [id number] 11/14/2024 14:55:57 03/13/2003/13/2025 pregn js test, urine HCG negati ve Not Available In-Office Order Internal Use Only DO Not Attach Compendium DO Not Attach Compendium, Do Not Delete/merge, [id number] 03/13/2025 14:44:15 03/18/2003/19/2025 TSH+F REE T4 TSH 2.550 uIU/m L 0.450- 4.500 normal Not Available [facility] ([facility]) [address] [place], [address], 03/19/2025 08:06:30 03/18/2003/19/2025 TSH+F REE T4 T4,free(dire ct) 1.12 NG/dL 0.82-1 .77 normal Not Available [facility] ([facility]) [address] [place], [address], 03/19/2025 08:06:30 03/18/2003/19/2025 FSH FSH 9.2 mIU/m L Adult Femal e Range Folli cular phase 3.5 - 12.5 Ovula tion phase 4.7 - 21.5 Lutea l phase 1.7 - 7.7 Postm enopa usal 25.8 - 134.8 Not Available [facility] ([facility]) [address] [place], [address], 03/19/2025 08:06:31 03/18/2003/19/2025 PROLA CTIN prolactin 9.3 NG/mL 4.8-33 .4 normal Not Available [facility] ([facility]) [address] [place], [address], 03/19/2025 08:06:31 03/18/2003/19/2025 ESTRA DIOL estradiol 57.6 pg/mL normal Adult Femal e Range Folli cular phase 12.5 - 166.0 Ovula tion phase 85.8 - 498.0 Lutea l phase 43.8 - 211.0 Postm enopa usal <6.0 - 54.7 Pregn js 1st trime ster 215.0 - >4300 .0 David ECLIA metho dolog y Not Available [facility] ([facility]) [address] [place], [address], 03/19/2025 08:06:31 03/18/20 25 03/19/2025 HCG QL W/REF MIKAELA TO HCG QN HCG,beta subunit,qual Negati ve mIU/m L negati ve <6 Not Available [facility] ([facility]) [address] [place], [address], 03/19/2025 08:06:32 03/18/20 25 03/21/2025 TESTO STERO NE, FREE+ TOTAL LC/MS free testosterone (direct) 0.4 pg/mL 0.0-4. 2 Not Available [facility] ([facility]) [address] [place], [address], 03/23/2025 16:06:24 03/18/20 25 03/23/2025 TESTO STERO NE, FREE+ TOTAL LC/MS testosterone , total, lc/MS 34.0 NG/dL 10.0-5 5.0 Not Available [facility] ([facility]) [address] [place], [address], 03/23/2025 16:06:24 06/23/20 25 06/23/2025 pregn js test, urine HCG negati ve Not Available In-Office Order Internal Use Only DO Not Attach Compendium DO Not Attach Compendium, Do Not Delete/merge, [id number] 06/23/2025 09:28:22 Result Notes None recorded. Problems Name Problem SNOMED Code Status Onset Date Resolution Date Notes Provider Name and Address Organization Details Recorded Time Dyspareuni a 64800545 Active 2017 Sherly Lind MD [address], [place], [address], [place] - [facility], 8 12:19:32 Lesion of vulva 186283476 Active 2017 Sherly Lind MD [address], [place], 5, [place] - [facility], 8 12:19:39 History of chlamydial infection 745847021 Active 201710/08/17 had positive chlamydia infection Sherly Lind MD [address], [place], [address], [place] - [facility], 8 12:20:02 Irritable bowel syndrome 67083454 Active 2021 AYLIN [place] in [facility], 2 14:39:37 Syncope 178784119 Active 2022 AYLIN [place] in [facility], 3 15:21:10 Problem Notes None recorded. [...] Last Updated DateTime 167.64 cm 20.7 kg/m2 99226.5 4 g 114 /min 97.5 [degF] 126/76 mm[Hg] Laura Olvera in [facility], 15:15:09 Date Recorded Body height Body temperature Body mass index (BMI) Body weight Heart rate Systolic And Diastolic Provider Name and Address Organization Details Last Updated DateTime 167.64 cm 98.3 [degF] 19.9 kg/m2 50255.0 2 g 100 /min 122/75 mm[Hg] Laura Olvera in [facility], 14:53:14 Date Recorded Body height Body mass index (BMI) Body weight Heart rate Systolic And Diastolic Provider Name and Address Organization Details Last Updated DateTime 12/08/2024 167.64 cm 19.7 kg/m2 57215.99 g 129 /min 124/80 mm[Hg] Laura Olvera in [facility], 12/08/2024 14:00:15 Date Recorded Body height Body mass index (BMI) Body weight Provider Name and Address Organization Details Last Updated DateTime 03/13/2025 167.64 cm 17.8 kg/m2 81874.16 g Laura Olvera in [facility], 03/13/2025 14:33:24 Date Recorded Body height Body mass index (BMI) Body weight Heart rate Systolic And Diastolic Provider Name and Address Organization Details Last Updated DateTime 06/23/2025 167.64 cm 17.8 kg/m2 05064.16 g 76 /min 133/85 mm[Hg] Laura Olvera in [facility], 06/23/2025 09:21:53 Social History Question Answer Notes LastModified by Organization Details LastModified Time Tobacco Smoking Status Never Smoker AYLIN Arrington in [facility], 11/26/2017 11:23:15 How Many Years Have [...] Or The Highest Degree You Have Received? TI88300-0 Information not available 10/13/2024 Who Is Your [...] anxious, or unable to sleep at night)? [id number] Information not available 03/20/2022 Family History Relationship [...] (COVID-19) vaccine, UNSPECIFIED 1 completed Not Available [facility] 08/18/2023 14:48:34 COVID-19, mRNA, LNP-S, PF, 30 mcg/0.3 mL dose 1 completed AYLIN [place] in [facility], 05/04/2023 15:20:25 COVID-19, mRNA, LNP-S, PF, 30 mcg/0.3 mL dose 1 completed AYLIN [place] in [facility], 05/04/2023 15:20:25 Hep A, ped/adol, 2 dose 8 completed AYLIN Montana in [facility], 05/04/2023 15:20:25 meningococcal MCV4P 6 completed AYLIN Montana in [facility], 05/04/2023 15:20:25 Past Encounters Encounter ID Performer Location Encounter Start Date Encounter Closed Date Diagnosis/Indication Diagnosis SNOMED-CT Code Diagnosis ICD10 Code Diagnosis IMO Codes Diagnosis Note [id number] MD SHERLY Seaman MD [address] [place] [address] [place] [address] 11/26/2017 11:05:52 11/26/2017 13:38:21 Herpetic ulceration of vulva 49076194 A60.04 A60.09 Venereal d isease screening 942627386 Z11.3 Candidal vulvovaginitis 50226844 B37.3 [id number] MD SHERLY Seaman MD [address] [place] [address] [place] [address] 12/03/2017 13:16:26 12/03/2017 15:49:53 Lesion of vulva 949988768 N90.9 Dyspareunia 89956144 N94 .10 History of chlamydial infection 444780155 Z86.19 [id number] MD SHERLY Seaman MD [address] [place] [address] [place] [address] 12/24/2017 09:17:38 12/24/2017 12:03:22 Candidal vulvovaginitis 66262722 B37.3 Dysuria 64731829 R30.0 [id number] MD SHERLY Seaman MD [address] [place] [address] [place] [address] 05/25/2018 13:02:26 05/25/2018 14:33:36 Candidal vulvovaginitis 20433962 B37.3 Vulvitis 05462365 N76.2 Lesion of vulva 79974751 6 N90.9 [id number] MD SHERLY Seaman MD [address] [place] [address] [place] [address] 08/05/2018 14:19:53 08/05/2018 15:24:00 Candidal vulvovaginitis 56872641 B37.3 [id number] MD SHERLY Seaman MD [address] [place] [address] [place] [address] 08/19/2018 10:17:41 08/19/2018 13:12:01 Venereal disease screening 796123072 Z11.3 Candidal vulvovaginitis 42101579 B37.3 Lesion of vulva 36749769 6 N90.9 [id number] MD SHERLY Seaman MD [address] [place] [address],[facility] [place] [address] 10/12/2018 12:50:50 10/12/2018 13:33:37 Candidal vulvovaginitis 08272039 B37.3 History of chlamydial infection 282485771 Z86.19 [id number] MD SHERLY Seaman MD [address] [place] [address],[facility] [place] [address] 12/09/2018 09:54:15 12/09/2018 11:18:40 Candidal vulvovaginitis 74055385 B37.3 [id number] MD SHERLY Seaman MD [address] [place] [address],[facility] [place] [address] 01/31/2019 09:36:14 01/31/2019 15:08:16 Candidal vulvovaginitis 64632671 B37.3 [id number] MD SHERLY Seaman MD [address] [place] [address],[facility] [place] [address] 02/03/2019 13:24:43 02/03/2019 13:59:22 Vulvitis 68280460 N76.2 [id number] MD SHERLY Seaman MD [address] [place] [address],[address] [address] 04/25/2019 12:55:43 04/25/2019 15:04:49 Uses oral contraception 0353642 Z79.3 Specialize d medical examination 34539782 Z01.419 Venereal d isease screening 220732957 Z11.3 Dysuria 48194867 R30.0 [id number] MD SHERLY Seaman MD [address] [place] [address],[facility] [place] [address] 08/04/2019 14:12:43 08/04/2019 15:44:40 Irregular periods 81574709 N92.6 Chlamydial infection 105 593653 A74.9 [id number] MD SHERLY Seaman MD [address] [place] [address],[place] [address] 08/23/2019 13:18:57 08/23/2019 14:42:32 Venereal disease screening 770023514 Z11.3 History of chlamydial infection 570296686 Z86.19 Candidal vulvovaginitis 69138767 B37.3 [id number] MD SHERLY Seaman MD [address] [place] [address] [place] [address] 09/19/2019 12:57:00 09/19/2019 14:40:52 Venereal disease screening 114039829 Z11.3 Chlamydial infection 105 367041 A56.02 [id number] MD SHERLY Seaman MD [address] [place] [address] [place] [address] 01/30/2020 14:21:03 01/31/2020 08:19:53 Venereal disease screening 067871357 Z11.3 Lesion of vulva 36045301 6 N90.9 [id number] MD SHERLY Seaman MD [address] [place], [place] [address]E [place] [address] 03/09/2020 13:29:24 03/09/2020 14:27:16 Acute lower urinary tract infection 592838460 R30.0 Venereal d isease screening 446122570 Z11.3 Candidal vulvovaginitis 63248477 B37.3 [id number] MD SHERLY Seaman MD [address] [place], [place] [address] [address] 07/16/2020 13:16:09 07/16/2020 14:17:13 Specialized medical examination 99509706 Z01.419 Venereal d isease screening 444428925 Z11.3 [id number] MD SHERLY Seaman MD [address] [place] [address] [place] [address] 11/01/2020 12:58:10 11/01/2020 14:21:28 Acute lower urinary tract infection 866350651 R30.0 Candidal vulvovaginitis 07129476 B37.3 [id number] MD SHERLY Seaman MD [address] [place] [address],[place] [address] 03/20/2022 14:34:48 03/20/2022 15:49:31 Specialized medical examination 01356590 Z01.419 Venereal d isease screening 282984932 Z11.3 Candidal vulvovaginitis 67087157 B37.3 [id number] MD SHERLY Seaman MD [address] [place] [address],[place] [address] 05/04/2023 15:12:54 05/04/2023 16:09:48 Specialized medical examination 23570392 Z01.419 Venereal d isease screening 640103989 Z11.3 Candidal vulvovaginitis 96773365 B37.31 [id number] MD SHERLY Seaman MD [address] [place] [address],[place] [address] 08/18/2023 14:46:36 08/19/2023 10:41:02 Atypical squamous cells of undetermined significance on cervical Papanicolaou smear 879846835 R87.610 [id number] MD SHERLY Seaman MD [address] [place] [address],[place] [address] 10/13/2024 15:11:13 10/13/2024 15:40:44 Specialized medical examination 01808882 Z01.419 Venereal d isease screening 182221235 Z11.3 [id number] MD SHERLY Seaman MD [address] [place] [address],[place] [address] 11/14/2024 14:50:23 11/14/2024 15:40:13 Abnormal uterine bleeding 2600810319 9100 N93.8 [id number] MD SHERLY Seaman MD [address] [place] [address],[place] [address] 12/08/2024 13:54:27 12/08/2024 15:28:03 Abnormal uterine bleeding 5664159326 9100 N93.9 58765767 [id number] MD SHERLY Seaman MD [address] [facility],[address] [place] [address] 03/13/2025 14:27:48 03/15/2025 09:24:02 Amenorrhea 48475130 N91.1 Unintentio nal weight loss 592849845 R63.4 29321302 [id number] MD SHERLY Seaman MD [address] [facility], [address] [place] [address] 06/23/2025 09:10:43 06/23/2025 11:42:02 Amenorrhea 76693623 N91.2 [id number] Contracept jessica counseling 2414669911 2105 Z30.09 [id number] Health Concerns Section Related Observation LastModified by Organization Detai ls LastModified Time None Recorded Concern Status LastModified by Organization Details LastModified Time None Recorded Advance Directives Directive None Recorded Payers Insurance Date Sequence Insurance Name Policy Number Policy Ramirez Covered Member ID Ramirez Member ID Guarantor Name 04/25/2019 1 [facility] (O) [id number] Julio Polo [id number] Morelia Polo 06/22/2025 1 [facility] [id number] Morelia Polo [id number] Morelia Polo 03/13/2025 [facility] Morelia Polo [id number] Morelia Polo 03/13/2025 1 [facility] [id number] Julio Polo [id number] Morelia Polo 01/30/2020 1 [employer] (O) [id number] Julio Polo [id number] Morelia Polo 05/04/2023 1 [facility] (O) [id number] Julio Polo [id number] Morelia Polo Notes Date Note Type Note [...] MD [address], [place], [address], [place] - [facility], 10/13/2024 15:38:36 11/14/2024 text/html She is [...] MD [address], [place], [address], [place] - [facility], 11/14/2024 15:26:49 12/08/2024 text/html She started [...] MD [address], [place], [address], [place] - [facility], 12/08/2024 14:38:48 03/13/2025 text/html She is [...] MD [address], [place], [address], [place] - [facility], 03/14/2025 07:29:09 06/23/2025 text/html She is [...] before getting . Sherly Lind MD [address] [facility],[address], [place], [address], [place] - [facility], 06/23/2025 10:36:57 OBGyn Episode No OBEpisode recorded.
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
--- OUTSIDE RECORDS SUMMARY | 2025-07-04 08:53 | XMS_ITS | Continuity of Care Document ---
Author Organization [facility],, SHERLY BARGER MD Address [address] [address] Care Team Providers Care Clinical Lab Assistant Name Role Phone JERMAINE RAZA Primary Care Provider Assessment No assessment recorded. Plan of Treatment Reminders Order Date Submit Date Provider Last Modified By Organization Details Last Modified Time Details Appointments ANNUAL EXAM 2025 03:20P M Sherly Barger MD Not available Not available Not available Lab test, urine 2024 025 [email or web address] 1 In-Office Order, Internal Use Only DO Not Attach Compendium DO Not Attach Compendium, Do Not Delete/merge, [id number] 06/23/2025 09:47:55 insulin, free + total, serum 2024 025 [email or web address], [address] [facility], [place], [address], 06/30/2025 07:16:54 cortisol, am, serum 2024 025 [email or web address], [address] [facility], [place], [address], 06/30/2025 07:16:54 anti-yadira erian hormone (amh), serum 2024 025 [email or web address], [address] [facility], [place], [address], 06/30/2025 07:16:54 Referral None recorded. Procedures None recorded. Surgeries None recorded. Imaging None recorded. Medication Orders Kristina 0.35 mg tablet 2024 025 [facility], [address] [place], [address], 06/23/2025 09:50:23 Patient TargetsNo targets recorded. Patient Instructions Encounter Date Encounter Id Patient Instructions Last Modified By Organization Details Last Modified Time 06/23/2025 [id number] secondary amenorrhea: care instructions Not available 06/23/2025 [...] Abnormal Flag Note LastModifiedBy Organization Detail LastModifiedTime 06/23/20 25 06/23/2025 pregn js test, urine HCG negati ve Not Available In-Office Order Internal Use Only DO Not Attach Compendium DO Not Attach Compendium, Do Not Delete/merge, [id number] 06/23/2025 09:28:22 Result Notes None recorded. Problems Name Problem SNOMED Code Status Onset Date Resolution Date Notes Provider Name and Address Organization Details Recorded Time Dyspareuni a 21315915 Active 2017 Sherly Barger MD [address], [place], [address], [place] - [facility], 8 12:19:32 Lesion of vulva 508787844 Active 2017 Sherly Barger MD [address], [place], [address], [place] - [place] in [facility], 8 12:19:39 History of chlamydial infection 991864287 Active 201710/08/17 had positive chlamydia infection Sherly Barger MD [address], [place], [address], [place] - [facility], 8 12:20:02 Irritable bowel syndrome 84749983 Active 2021 [place] in [facility], 2 14:39:37 Syncope 781027718 Active 2022 [place] in [facility], 3 15:21:10 Problem Notes None [...] Updated DateTime 06/23/2025 167.64 cm 17.8 kg/m2 72541.16 g 76 /min 133/85 mm[Hg] Laura Olvera in [facility], 06/23/2025 09:21:53 Social History Question Answer Notes LastModified by Organization Details LastModified Time Tobacco Smoking Status Never Smoker [facility] [place] in [facility], 11/26/2017 11:23:15 How Many Years Have [...] not available 11/26/2017 Education 4 Year College [employer]. Information not available 08/18/2023 What Is The Highest Grade Or Level Of School You Have Completed Or The Highest Degree You Have Received? [id number] Information not available 10/13/2024 Who Is Your Employer? [employer] Information not available 03/20/2022 Are There Any [...] anxious, or unable to sleep at night)? [id number] Information not available 03/20/2022 Family History Relationship [...] (COVID-19) vaccine, UNSPECIFIED 1 completed Not Available [facility] 08/18/2023 14:48:34 COVID-19, mRNA, LNP-S, PF, 30 mcg/0.3 mL dose 1 completed [place] [place] in [facility], 05/04/2023 15:20:25 COVID-19, mRNA, LNP-S, PF, 30 mcg/0.3 mL dose 1 completed [place] in [facility], 05/04/2023 15:20:25 Hep A, ped/adol, 2 dose 8 completed [facility] [place] in [facility], 05/04/2023 15:20:25 meningococcal MCV4P 6 completed [facility] [place] in [facility], 05/04/2023 15:20:25 Past Encounters Encounter ID Performer Location Encounter Start Date Encounter Closed Date Diagnosis/Indication Diagnosis SNOMED-CT Code Diagnosis ICD10 Code Diagnosis IMO Codes Diagnosis Note [id number] MD SHERLY Seaman MD [address] [facility], [address] [place] [address] 06/23/2025 09:10:43 06/23/2025 11:42:02 Amenorrhea 27921788 N91.2 24545 Contracept radha counseling 1775998160 2105 Z30.09 [id number] Health Concerns Section Related Observation LastModified by Organization Detai ls LastModified Time None Recorded Concern Status LastModified by Organization Details LastModified Time None Recorded Payers Encounter Date Sequence Insurance Name Policy Number Policy Ramirez Covered Member ID Ramirez Member ID Guarantor Name 06/23/[address] [place] [address] [id number] Morelia Polo [id number] Morelia Polo Notes Date Note Type Note [...] before getting . Sherly Barger MD [address] [facility],[address] [address], [place] [facility], 06/23/2025 10:36:57 OBGyn Episode No OBEpisode recorded.
== END 2025-07-04 08:45 | disposition home or self-care (01) ==
LOC: HO.HSM 08:27
PROVIDERS: PCP Internal Medicine; Visit Provider Nurse Practitioner
DX: R40.20 Unspecified coma (principal)
CPT/HCPCS: 99213